=== PATIENT | female | born 1960 | race American Indian/Alaskan Native ===

== ENCOUNTER 2017-03-07 22:13 | Emergency (ER) | payer MEDICARE ==
[2017-03-07 23:47] LABS: Basophils % (Auto) 0.8 % (0.0-1.8); Eosinophils % (Auto) 2.2 % (0.0-4.3); Hematocrit 41.5 % (30.3-42.9); Hemoglobin 13.6 gm/dl (10.1-14.3); Mean Corpuscular HGB Conc 33 % (30-34); Mean Corpuscular Hemoglobin 29 pg (28-32); Mean Corpuscular Volume 87 fl (79-97); Platelet Count 196 K/mm3 (140-440); Red Blood Count 4.76 M/mm3 (3.65-5.03); Red Cell Distribution Width 12.8 % (13.2-15.2); White Blood Count 6.3 K/mm3 (4.5-11.0)
[2017-03-07 23:59] LABS: Alanine Aminotransferase 10 units/L (7-56); Albumin 4.1 g/dL (3.9-5); Albumin/Globulin Ratio 1.5 %; Alkaline Phosphatase 70 units/L (35-129); Anion Gap 17 mmol/L; Blood Urea Nitrogen 6 mg/dL (7-17); Calcium 9.4 mg/dL (8.4-10.2); Carbon Dioxide 24 mmol/L (22-30); Chloride 96.6 mmol/L (98-107); Glucose 86 mg/dL (65-100); Potassium 3.5 mmol/L (3.6-5.0); Sodium 134 mmol/L (137-145); Total Protein 6.8 g/dL (6.3-8.2)
--- NOTE | 2017-03-08 00:34 | Cat Scan Report ---
FINAL REPORT EXAM: CT HEAD/BRAIN W/O CONTRAST. HISTORY: Headaches. TECHNIQUE: Unenhanced axial CT images of the brain were obtained. No prior studies are available for comparison. FINDINGS: The cortical sulci and ventricles are within normal limits for patient's age. Incidental note is made of a small cavum septum pellucidum (developmental variant). There is no extra-axial fluid collection, mass, mass effect, midline shift, hydrocephalus, or acute intracranial hemorrhage. The visualized paranasal sinuses and mastoid air cells are clear. There is no skull fracture or other osseous abnormality. The visualized orbits and globes are grossly unremarkable. IMPRESSION: No acute intracranial abnormality.
[2017-03-08] MEDS ORDERED: TORADOL IM ONE (04:19)
--- NOTE | 2017-03-08 04:24 | Emergency Department Report ---
ED Headache HPI - General Chief Complaint: Headache Stated Complaint: HEADACHE Time Seen by Provider: 03/08/17 04:09 Source: patient Exam Limitations: no limitations - History of Present Illness Initial Comments: 56-year-old female coming today with a chief complaint of headache pain going on for 1-1/2 month. Patient describes her headache as right-sided headache radiated down to her neck constant. Patient scheduled for an open MRI today. Patient denied any focal motor deficits or sensory deficit no visual disturbance or deficit, no bowel or bladder incontinence. Patient denied any history of fever or recent travel. Quality: moderate Head Injury Location: occipital Recent Head Trauma: no recent headache/trauma Associated Symptoms: denies symptoms Allergies/Adverse Reactions: Allergies iodine Allergy (Verified 03/08/17 02:56) Anaphylaxis morphine Allergy (Verified 03/08/17 02:56) Anaphylaxis Penicillins Allergy (Verified 03/08/17 02:56) Anaphylaxis Home Medications: Ambulatory Orders Butalb/Acetaminophen/Caffeine [Fioricet 50-300-40 mg CAP] 1 cap PO Q6HR PRN 08/18 Carvedilol 12.5 mg PO BID 03/03/17 Cyclobenzaprine 10 mg PO BID PRN 03/03/17 Lisinopril 10 mg PO QDAY 03/03/17 Topiramate 100 mg PO QDAY 03/03/17 Meclizine [Antivert] 12.5 mg PO Q8H PRN #30 day 03/05/17 Pantoprazole [Protonix TAB] 40 mg PO QDAY #7 day 03/05/17 HYDROcodone/APAP 5-325 [[place] 5/325] 1 each PO Q6HR PRN #20 tablet 03/08/17 Ondansetron [Zofran Odt] 4 mg PO Q8HR PRN #14 tab.rapdis 03/08/17 ED Review of Systems ROS: Stated complaint: HEADACHE Other details as noted in HPI Comment: All other systems reviewed and negative Constitutional: denies: chills, fever ENT: denies: ear pain, throat pain, dental pain Respiratory: denies: cough, shortness of breath, SOB with exertion Cardiovascular: denies: chest pain, palpitations Gastrointestinal: denies: abdominal pain, nausea, vomiting Genitourinary: denies: urgency, dysuria, frequency, hematuria Musculoskeletal: denies: back pain Skin: denies: rash, lesions Neurological: headache. denies: weakness, numbness, paresthesias, confusion, abnormal gait, vertigo ED Past Medical Hx - Past Medical History Previous Medical History?: Yes Hx Congestive Heart Failure: Yes Hx Asthma: Yes Hx COPD: Yes Additional medical history: hyperthyroidism; cardiac stents x2, 2006 - Surgical History Past Surgical History?: No - Social History Smoking Status: Current Every Day Smoker Substance Use Type: None - Medications Home Medications: Home Medications Medication Instructions Recorded Confirmed Last Taken Type Butalb/Acetaminophen/Caffeine 1 cap PO Q6HR PRN 03/03/17 03/08/17 Unknown History [Fioricet 50-300-40 mg CAP] Carvedilol 12.5 mg PO BID 03/03/17 03/08/17 03/07/17 History Cyclobenzaprine 10 mg PO BID PRN 03/03/17 03/08/17 03/07/17 History Lisinopril 10 mg PO QDAY 03/03/17 03/08/17 03/07/17 History Topiramate 100 mg PO QDAY 03/03/17 03/08/17 03/07/17 History Meclizine [Antivert] 12.5 mg PO Q8H PRN #30 day 03/05/17 03/08/17 Unknown Rx Pantoprazole [Protonix TAB] 40 mg PO QDAY #7 day 03/05/17 03/08/17 Unknown Rx HYDROcodone/APAP 5-325 [[place] 1 each PO Q6HR PRN #20 tablet 03/08/17 Unknown Rx 5/325] Ondansetron [Zofran Odt] 4 mg PO Q8HR PRN #14 tab.rapdis 03/08/17 Unknown Rx ED Physical Exam - General Limitations: No Limitations General appearance: alert, in no apparent distress - Head Head exam: Present: atraumatic, normocephalic, normal inspection - Eye Eye exam: Present: normal appearance, PERRL, EOMI Pupils: Present: normal accommodation - ENT ENT exam: Present: normal exam, normal orophraynx, mucous membranes moist, TM's normal bilaterally, normal external ear exam - Neck Neck exam: Present: normal inspection, full ROM. Absent: tenderness, meningismus, lymphadenopathy, thyromegaly - Respiratory Respiratory exam: Present: normal lung sounds bilaterally. Absent: respiratory distress, wheezes, rales, rhonchi, chest wall tenderness, accessory muscle use, decreased breath sounds, prolonged expiratory - Cardiovascular Cardiovascular Exam: Present: regular rate, normal rhythm, normal heart sounds - GI/Abdominal GI/Abdominal exam: Present: soft. Absent: tenderness, guarding, rebound, mass, bruit, pulsatile mass - Extremities Exam Extremities exam: Present: normal inspection. Absent: tenderness - Back Exam Back exam: Absent: normal inspection, tenderness, CVA tenderness (R), CVA tenderness (L), muscle spasm - Neurological Exam Neurological exam: Present: alert, oriented X3, CN II-XII intact, normal gait, reflexes normal. Absent: abnormal gait, motor sensory deficit - Skin Skin exam: Present: warm, intact, normal color ED Course Vital Signs 03/07/17 03/07/17 03/08/17 22:26 22:57 02:21 Temperature 98.8 F Pulse Rate 67 66 70 Respiratory 18 16 Rate Blood Pressure 147/97 147/97 Blood Pressure [Right] O2 Sat by Pulse 100 100 100 Oximetry 03/08/17 03/08/17 03/08/17 02:30 02:45 02:57 Temperature Pulse Rate 71 66 59 L Respiratory 14 17 18 Rate Blood Pressure 135/83 106/69 Blood Pressure 112/67 [Right] O2 Sat by Pulse 99 100 100 Oximetry 03/08/17 03/08/17 03/08/17 03:05 03:15 03:30 Temperature Pulse Rate 54 L 58 L Respiratory 18 17 Rate Blood Pressure 112/67 116/77 114/77 Blood Pressure [Right] O2 Sat by Pulse 100 99 Oximetry 03/08/17 03/08/17 03/08/17 03:45 04:00 04:15 Temperature Pulse Rate 61 59 L 63 Respiratory 18 17 15 Rate Blood Pressure 116/76 115/77 131/87 Blood Pressure [Right] O2 Sat by Pulse 100 100 Oximetry ED Medical Decision Making - Lab Data Result diagrams: 03/07/17 23:21 03/07/17 23:21 Critical care attestation.: If time is entered above; I have spent that time in minutes in the direct care of this critically ill patient, excluding procedure time. ED Disposition Clinical Impression: Headache Disposition: DC-01 TO HOME OR SELFCARE Is pt being admited?: No Condition: Stable Instructions: Acute Headache (ED) Referrals: PRIMARY CARE, [Primary Care Provider] - 3-5 Days
[2017-03-08 04:44] VITALS: BP 123/78
== END 2017-03-08 05:07 | disposition home or self-care (01) ==
LOC: ED 22:13
DX: R51 Headache (principal); I50.9 Heart failure, unspecified; J45.909 Unspecified asthma, uncomplicated; E05.90 Thyrotoxicosis, unspecified without thyrotoxic crisis or storm; F17.200 Nicotine dependence, unspecified, uncomplicated; Z95.1 Presence of aortocoronary bypass graft; Z88.5 Allergy status to narcotic agent; Z88.0 Allergy status to penicillin; Z91.02 Food additives allergy status
CPT/HCPCS: 36415; 70450; 80053; 85025; 96372; 99284; J1885

== ENCOUNTER 2017-03-09 21:35 | Emergency (ER) | payer MEDICARE ==
[2017-03-09 22:35] LABS: Basophils % (Auto) 0.9 % (0.0-1.8); Eosinophils % (Auto) 2.1 % (0.0-4.3); Hemoglobin 13.9 gm/dl (10.1-14.3); Mean Corpuscular HGB Conc 32 % (30-34); Mean Corpuscular Hemoglobin 29 pg (28-32); Mean Corpuscular Volume 88 fl (79-97); Platelet Count 199 K/mm3 (140-440); Red Blood Count 4.88 M/mm3 (3.65-5.03); Red Cell Distribution Width 12.9 % (13.2-15.2); White Blood Count 6.8 K/mm3 (4.5-11.0)
[2017-03-09 22:43] LABS: Anion Gap 19 mmol/L; Blood Urea Nitrogen 6 mg/dL (7-17); Calcium 9.3 mg/dL (8.4-10.2); Carbon Dioxide 21 mmol/L (22-30); Chloride 100.6 mmol/L (98-107); Glucose 85 mg/dL (65-100); Potassium 3.8 mmol/L (3.6-5.0); Sodium 137 mmol/L (137-145)
[2017-03-10] MEDS ORDERED: TYLENOL PO ONE (02:06)
--- NOTE | 2017-03-10 10:20 | Emergency Department Report ---
ED Headache HPI - General Chief Complaint: Dizziness Stated Complaint: HEADACHE, DIZZINESS Time Seen by Provider: 03/10/17 10:07 Source: patient - History of Present Illness Initial Comments: 57-year-old female here with headache for the last month. Patient states she is having persistent headache feels a burning in the back of her head that is been fairly constant for the last month. She complains of some dizziness. States she feels lightheaded on a regular basis. Says the headache is resolved with some Tylenol but only gives her approximately 30 minutes of relief. She has no visual changes. She does get occasional nausea but no vomiting. She denies fevers and chills. She does get some neck pain on the right side but she feels like she is holding her neck because of the headache. Timing/Duration: other (1 month) Quality: moderate Recent Head Trauma: no recent headache/trauma, chronic headaches Associated Symptoms: nausea/vomiting. denies: confusion, fatigue, facial pain, fever/chills, flushing, loss of consciousness, nasal congestion, nasal drainage , numbness in legs/feet, seizures, sinus infection, stiff neck, vision changes Allergies/Adverse Reactions: Allergies iodine Allergy (Verified 03/08/17 02:56) Anaphylaxis morphine Allergy (Verified 03/08/17 02:56) Anaphylaxis Penicillins Allergy (Verified 03/08/17 02:56) Anaphylaxis Home Medications: Ambulatory Orders Carvedilol 12.5 mg PO BID 03/03/17 Cyclobenzaprine 10 mg PO BID PRN 03/03/17 Lisinopril 10 mg PO QDAY 03/03/17 Topiramate 100 mg PO QDAY 03/03/17 Meclizine [Antivert] 12.5 mg PO Q8H PRN #30 day 03/05/17 Pantoprazole [Protonix TAB] 40 mg PO QDAY #7 day 03/05/17 HYDROcodone/APAP 5-325 [[place] 5/325] 1 each PO Q6HR PRN #20 tablet 03/08/17 Ondansetron [Zofran Odt] 4 mg PO Q8HR PRN #14 tab.rapdis 03/08/17 Butalb/Acetaminophen/Caffeine [Fioricet 50-300-40 mg CAP] 1 cap PO Q6HR PRN #10 capsule 03/10/17 Ibuprofen [Motrin] 600 mg PO Q8H PRN #30 tablet 03/10/17 methylPREDNISolone [Medrol] 4 mg PO QAM #1 tab.ds.pk 03/10/17 ED Review of Systems ROS: Stated complaint: HEADACHE, DIZZINESS Other details as noted in HPI Comment: All other systems reviewed and negative Constitutional: denies: chills, fever Eyes: denies: eye pain, eye discharge, vision change ENT: denies: ear pain, throat pain Respiratory: denies: cough, shortness of breath, wheezing Cardiovascular: denies: chest pain, palpitations Endocrine: no symptoms reported Gastrointestinal: nausea. denies: abdominal pain, diarrhea Genitourinary: denies: urgency, dysuria, discharge Musculoskeletal: denies: back pain, joint swelling, arthralgia Skin: denies: rash, lesions Neurological: headache, other (dizziness). denies: weakness, paresthesias Psychiatric: denies: anxiety, depression Hematological/Lymphatic: denies: easy bleeding, easy bruising ED Past Medical Hx - Past Medical History Previous Medical History?: Yes Hx Hypertension: Yes (CHF) Hx Congestive Heart Failure: Yes Hx Asthma: Yes Hx COPD: Yes Additional medical history: hyperthyroidism; cardiac stents x2, 2006 - Surgical History Past Surgical History?: No - Family History Family history: no significant - Social History Smoking Status: Current Some Day Smoker Substance Use Type: Prescribed - Medications Home Medications: Home Medications Medication Instructions Recorded Confirmed Last Taken Type Carvedilol 12.5 mg PO BID 03/03/17 03/08/17 03/07/17 History Cyclobenzaprine 10 mg PO BID PRN 03/03/17 03/08/17 03/07/17 History Lisinopril 10 mg PO QDAY 03/03/17 03/08/17 03/07/17 History Topiramate 100 mg PO QDAY 03/03/17 03/08/17 03/07/17 History Meclizine [Antivert] 12.5 mg PO Q8H PRN #30 day 03/05/17 03/08/17 Unknown Rx Pantoprazole [Protonix TAB] 40 mg PO QDAY #7 day 03/05/17 03/08/17 Unknown Rx HYDROcodone/APAP 5-325 [[place] 1 each PO Q6HR PRN #20 tablet 03/08/17 Unknown Rx 5/325] Ondansetron [Zofran Odt] 4 mg PO Q8HR PRN #14 tab.rapdis 03/08/17 Unknown Rx Butalb/Acetaminophen/Caffeine 1 cap PO Q6HR PRN #10 capsule 03/10/17 Unknown Rx [Fioricet 50-300-40 mg CAP] Ibuprofen [Motrin] 600 mg PO Q8H PRN #30 tablet 03/10/17 Unknown Rx methylPREDNISolone [Medrol] 4 mg PO QAM #1 tab.ds.pk 03/10/17 Unknown Rx ED Physical Exam - General Limitations: No Limitations General appearance: alert, in no apparent distress - Head Head exam: Present: atraumatic, normocephalic - Eye Eye exam: Present: normal appearance, PERRL, EOMI. Absent: scleral icterus, conjunctival injection Pupils: Present: normal accommodation - ENT ENT exam: Present: mucous membranes moist - Neck Neck exam: Present: normal inspection - Respiratory Respiratory exam: Present: normal lung sounds bilaterally. Absent: respiratory distress, wheezes, rales, rhonchi - Cardiovascular Cardiovascular Exam: Present: regular rate, normal rhythm. Absent: systolic murmur, diastolic murmur, rubs, gallop - GI/Abdominal GI/Abdominal exam: Present: soft, normal bowel sounds. Absent: distended, tenderness, guarding - Extremities Exam Extremities exam: Present: normal inspection - Back Exam Back exam: Present: normal inspection - Neurological Exam Neurological exam: Present: alert, oriented X3 - Expanded Neurological Exam Expanded Patient oriented to: Present: person, place, time Speech: Present: fluid speech Cerebellar function: Finger to Nose: Normal, Heel to Calle: Normal, Romberg: Normal Upper motor neuron: [place] Neglect: Normal, Pronator Drift: Normal, Babinski Sign : Normal, Sensory Extinction: Normal Motor strength exam: RUE: 5, LUE: 5, RLE: 5, LLE: 5 Best Eye Response ([place]): (4) open spontaneously Best Motor Response ([place]): (6) obeys commands Best Verbal Response ([place]): (5) oriented Vicki Total: 15 - Psychiatric Psychiatric exam: Present: normal affect, normal mood - Skin Skin exam: Present: warm, dry, intact, normal color. Absent: rash ED Course Vital Signs 03/09/17 03/10/17 03/10/17 21:55 02:03 06:35 Temperature 98.4 F 98.1 F 98.7 F Pulse Rate 84 67 71 Respiratory 18 18 18 Rate Blood Pressure 92/61 113/79 Blood Pressure 135/66 [Left] O2 Sat by Pulse 97 100 100 Oximetry 03/10/17 07:35 Temperature Pulse Rate Respiratory 16 Rate Blood Pressure Blood Pressure [Left] O2 Sat by Pulse 100 Oximetry ED Medical Decision Making - Lab Data Result diagrams: 03/09/17 22:06 03/09/17 22:06 Laboratory Results - last 24 hr 03/09/17 03/09/17 03/10/17 22:06 22:06 01:06 WBC 6.8 RBC 4.88 Hgb 13.9 Hct 43.0 H MCV 88 MCH 29 MCHC 32 RDW 12.9 L Plt Count 199 Lymph % (Auto) 40.1 H [place] % (Auto) 11.0 H Eos % (Auto) 2.1 Baso % (Auto) 0.9 Lymph # 2.7 [place] # 0.7 Eos # 0.1 Baso # 0.1 Seg Neutrophils % 45.9 Seg Neutrophils # 3.1 Sodium 137 Potassium 3.8 Chloride 100.6 Carbon Dioxide 21 L Anion Gap 19 BUN 6 L Creatinine 0.5 L Estimated GFR > 60 BUN/Creatinine Ratio 12.00 Glucose 85 Calcium 9.3 Troponin T < 0.010 < 0.010 03/10/17 05:07 WBC RBC Hgb Hct MCV MCH MCHC RDW Plt Count Lymph % (Auto) [place] % (Auto) Eos % (Auto) Baso % (Auto) Lymph # [place] # Eos # Baso # Seg Neutrophils % Seg Neutrophils # Sodium Potassium Chloride Carbon Dioxide Anion Gap BUN Creatinine Estimated GFR BUN/Creatinine Ratio Glucose Calcium Troponin T < 0.010 - EKG Data -: EKG Interpreted by Me - EKG Data 03/10/17 10:20 Sinus rate of 72 normal axis normal intervals T-wave inversions in leads V3 and V4 no ST segment changes - Medical Decision Making 57-year-old female here with headache and lightheadedness. Patient has had the symptoms for over a month. At this point it appears this is a chronic headache. She had a negative head CT two days ago. She otherwise appears well. EKG shows T-wave inversions anteriorly but these are old. She is to negative troponins. She's not complaints of chest pain. Her neurological exam is completely normal. At this point I do not feel she has any intracranial pathology. Plan placed the patient on NSAIDs and other meds for headache. Possible migraine. Portions of this chart were dictated with dictation software. There may be dictation errors contained within this note. Critical care attestation.: If time is entered above; I have spent that time in minutes in the direct care of this critically ill patient, excluding procedure time. ED Disposition Clinical Impression: Headache, Dizziness Disposition: DC- TO HOME OR SELFCARE Is pt being admited?: No Condition: Stable Instructions: Acute Headache (ED) Prescriptions: Butalb/Acetaminophen/Caffeine [Fioricet 50-300-40 mg CAP] 1 cap PO Q6HR PRN #10 capsule PRN Reason: Headache Ibuprofen [Motrin] 600 mg PO Q8H PRN #30 tablet PRN Reason: Pain methylPREDNISolone [Medrol] 4 mg PO QAM #1 tab.ds.pk Referrals: PRIMARY CARE, [Primary Care Provider] - 3-5 Days
[2017-03-10 14:09] VITALS: BP 123/89
== END 2017-03-10 14:00 | disposition home or self-care (01) ==
LOC: ED 21:35
DX: R51 Headache (principal); R42 Dizziness and giddiness; F17.200 Nicotine dependence, unspecified, uncomplicated; I50.9 Heart failure, unspecified; I10 Essential (primary) hypertension; J45.909 Unspecified asthma, uncomplicated; Z88.0 Allergy status to penicillin; Z88.8 Allergy status to other drugs, medicaments and biological substances
CPT/HCPCS: 36415; 80048; 84484; 85025; 93005; 93010

== ENCOUNTER 2017-03-11 20:01 | Emergency (ER) | payer MEDICARE ==
[2017-03-11 20:54] LABS: Basophils % (Auto) 0.7 % (0.0-1.8); Eosinophils % (Auto) 1.8 % (0.0-4.3); Hematocrit 41.5 % (30.3-42.9); Hemoglobin 13.8 gm/dl (10.1-14.3); Mean Corpuscular HGB Conc 33 % (30-34); Mean Corpuscular Hemoglobin 29 pg (28-32); Mean Corpuscular Volume 87 fl (79-97); Platelet Count 194 K/mm3 (140-440); Red Blood Count 4.79 M/mm3 (3.65-5.03); Red Cell Distribution Width 12.8 % (13.2-15.2); White Blood Count 7.5 K/mm3 (4.5-11.0)
[2017-03-11 21:07] LABS: Alanine Aminotransferase 13 units/L (7-56); Albumin 4.5 g/dL (3.9-5); Alkaline Phosphatase 73 units/L (35-129); Anion Gap 20 mmol/L; Blood Urea Nitrogen 6 mg/dL (7-17); Calcium 9.4 mg/dL (8.4-10.2); Carbon Dioxide 23 mmol/L (22-30); Chloride 96.1 mmol/L (98-107); Glucose 124 mg/dL (65-100); Potassium 3.8 mmol/L (3.6-5.0); Sodium 135 mmol/L (137-145); Total Protein 6.8 g/dL (6.3-8.2)
--- NOTE | 2017-03-12 02:34 | Emergency Department Report ---
HPI - General Chief Complaint: Extremity Injury, Lower Time Seen by Provider: 03/12/17 02:29 - HPI HPI: Patient came to the ED initially for left leg pain but when I saw her neurologist and her pain in the leg was gone. She talked to me about having some dizziness, for which she was already seen and prescribed meclizine 12.5. She states that it feels like the room is spinning around her when the dizziness hates about once or twice a day. It usually hits after she takes a blood pressure pill all when she hasn't eaten yet. I told her she could increase the meclizine 12.5-25 mg daily the every 8 hours when necessary for dizziness. ED Past Medical Hx - Past Medical History Previous Medical History?: Yes Hx Hypertension: Yes (CHF) Hx Congestive Heart Failure: Yes Hx Asthma: Yes Hx COPD: Yes Additional medical history: hyperthyroidism; cardiac stents x2, 2006 - Surgical History Past Surgical History?: Yes Additional Surgical History: ectopic - Social History Smoking Status: Current Every Day Smoker Substance Use Type: None - Medications Home Medications: Home Medications Medication Instructions Recorded Confirmed Last Taken Type Carvedilol 12.5 mg PO BID 03/03/17 03/11/17 03/07/17 History Lisinopril 10 mg PO QDAY 03/03/17 03/11/17 03/07/17 History Meclizine [Antivert] 12.5 mg PO Q8H PRN #30 day 03/05/17 03/11/17 Unknown Rx Pantoprazole [Protonix TAB] 40 mg PO QDAY #7 day 03/05/17 03/11/17 Unknown Rx Butalb/Acetaminophen/Caffeine 1 cap PO Q6HR PRN #10 capsule 03/10/17 03/11/17 Unknown Rx [Fioricet 50-300-40 mg CAP] Topiramate 100 mg PO QDAY #30 03/10/17 03/11/17 Unknown Rx ED Review of Systems ROS: Stated complaint: LEFT LEG PAIN Other details as noted in HPI Comment: All other systems reviewed and negative Musculoskeletal: denies: back pain, joint swelling, arthralgia Neurological: other (dizziness) Psychiatric: denies: anxiety, depression Physical Exam - Physical Exam Vital Signs: Vital Signs 03/11/17 03/11/17 03/11/17 20:10 23:01 23:02 Temperature 98.6 F 98.6 F Pulse Rate 82 82 Respiratory 18 20 20 Rate Blood Pressure 151/104 Blood Pressure 164/87 [Left] O2 Sat by Pulse 100 99 100 Oximetry Physical Exam: Physical Exam: - General Limitations: No Limitations General appearance: alert, in no apparent distress. - Head Head exam: Present: atraumatic, normocephalic - Eye Eye exam: Present: normal appearance - ENT ENT exam: Present: mucous membranes moist - Neck Neck exam: Present: normal inspection - Respiratory Respiratory exam: Present: normal lung sounds bilaterally. Absent: respiratory distress - Cardiovascular Cardiovascular Exam: Present: normal rhythm, normal rate. Absent: systolic murmur, diastolic murmur, rubs, gallop - GI/Abdominal GI/Abdominal exam: Present: soft, normal bowel sounds - Extremities Exam Extremities exam: Present: normal inspection - Back Exam Back exam: Present: normal inspection - Neurological Exam Neurological exam: Present: alert, oriented X3 - Psychiatric Psychiatric exam: normal affect and mood - Skin Skin exam: Present: warm, dry, intact, normal color. Absent: rash ED Course Vital Signs 03/11/17 03/11/17 03/11/17 20:10 23:01 23:02 Temperature 98.6 F 98.6 F Pulse Rate 82 82 Respiratory 18 20 20 Rate Blood Pressure 151/104 Blood Pressure 164/87 [Left] O2 Sat by Pulse 100 99 100 Oximetry ED Medical Decision Making - Lab Data Result diagrams: 03/11/17 20:28 03/11/17 20:28 Critical care attestation.: If time is entered above; I have spent that time in minutes in the direct care of this critically ill patient, excluding procedure time. ED Disposition Clinical Impression: Dizziness Disposition: DC-01 TO HOME OR SELFCARE Is pt being admited?: No Does the pt Need Aspirin: No Condition: Stable Instructions: Dizziness (ED) Referrals: PRIMARY CARE, [Primary Care Provider] - 3-5 Days KIMBERLY FLORENCE MD [Staff Physician] - 3-5 Days
[2017-03-12 02:47] VITALS: BP 161/80
== END 2017-03-12 03:41 | disposition home or self-care (01) ==
LOC: ED 20:01
DX: R42 Dizziness and giddiness (principal); I50.9 Heart failure, unspecified; I10 Essential (primary) hypertension; J45.909 Unspecified asthma, uncomplicated; J44.9 Chronic obstructive pulmonary disease, unspecified; F17.200 Nicotine dependence, unspecified, uncomplicated; Z88.0 Allergy status to penicillin; Z88.8 Allergy status to other drugs, medicaments and biological substances
CPT/HCPCS: 36415; 80053; 85025; 99283

== ENCOUNTER 2017-03-23 20:51 | Emergency (ER) | payer MEDICARE ==
[2017-03-23 21:58] LABS: Basophils % (Auto) 1.3 % (0.0-1.8); Eosinophils % (Auto) 1.4 % (0.0-4.3); Hematocrit 38.9 % (30.3-42.9); Hemoglobin 12.9 gm/dl (10.1-14.3); Mean Corpuscular HGB Conc 33 % (30-34); Mean Corpuscular Hemoglobin 29 pg (28-32); Mean Corpuscular Volume 86 fl (79-97); Platelet Count 220 K/mm3 (140-440); Red Blood Count 4.53 M/mm3 (3.65-5.03); Red Cell Distribution Width 12.6 % (13.2-15.2); White Blood Count 8.4 K/mm3 (4.5-11.0)
[2017-03-23 22:01] LABS: Blood Urea Nitrogen 5 mg/dL (7-17); Carbon Dioxide 22 mmol/L (22-30)
[2017-03-23 22:02] LABS: Anion Gap 19 mmol/L; Calcium 9.6 mg/dL (8.4-10.2); Glucose 83 mg/dL (65-100); Potassium 3.4 mmol/L (3.6-5.0); Sodium 134 mmol/L (137-145)
[2017-03-24] MEDS ORDERED: TYLENOL PO ONE (09:21)
[2017-03-24] MEDS ORDERED: ATIVAN IM ONE (09:21)
--- NOTE | 2017-03-24 09:24 | XRay Report ---
Chest 2 views: Compared to 03/02/17. History: Chest pain. Findings: Normal cardiomediastinal silhouette. Trachea is midline. No consolidation, pneumothorax or pleural effusion. Impression: No acute cardiopulmonary findings.
--- NOTE | 2017-03-24 10:58 | Emergency Department Report ---
HPI - General Chief Complaint: Chest Pain Time Seen by Provider: 03/24/17 07:52 - HPI HPI: The patient is a 57-year-old female who presents for evaluation of headache, chest pain, and shortness of breath. The patient states that for the past 2 weeks she has experienced on and off episodes of headache, aching in quality, 8/ 10 in severity, generalized, lasting for minutes to a few hours, and followed by transient episodes of palpitations, and mild in severity, tightness in quality discomfort of the chest. She also has experienced moderate in quality shortness of breath at times with these episodes. She states that she believes stress triggers these episodes. The patient denies fever, neck pain or neck stiffness, parasthesias, motor deficit in the arms or legs, cough, hemoptysis, dizziness, syncope, unilateral leg swelling, calf muscle pain. Patient also denies cocaine or other stimulant use, history of DVT or PE, recent immobilization, or history of recent cancer. ED Past Medical Hx - Past Medical History Hx Hypertension: Yes (CHF) Hx Congestive Heart Failure: Yes Hx Asthma: Yes Hx COPD: Yes Additional medical history: hyperthyroidism; cardiac stents x2, 2006 - Surgical History Additional Surgical History: ectopic - Social History Smoking Status: Never Smoker Substance Use Type: None - Medications Home Medications: Home Medications Medication Instructions Recorded Confirmed Last Taken Type Lisinopril 10 mg PO QDAY 03/03/17 03/24/17 03/23/17 History Aspirin BABY CHEW TAB 81 mg PO DAILY 03/24/17 03/24/17 Unknown History Cyclobenzaprine HCl [Flexeril 5 MG 5 mg PO Q8HR PRN #12 tablet 03/24/17 Unknown Rx TAB] ED Review of Systems ROS: Stated complaint: CP Other details as noted in HPI Constitutional: denies: fever ENT: denies: throat or neck pain Respiratory: denies: cough, shortness of breath Cardiovascular: reports chest pain Endocrine: denies unexplained weight loss or gain Gastrointestinal: denies: abdominal pain, nausea Genitourinary: denies: dysuria Musculoskeletal: denies: leg swelling Skin: denies: rash Neurological: denies: headache Hematological/Lymphatic: denies: easy bleeding or easy bruising Psych: denies sadness or hopelessness Physical Exam - Physical Exam Vital Signs: Vital Signs 03/23/17 03/23/17 03/24/17 21:03 21:04 00:44 Temperature 98.9 F 98.9 F 97.6 F Pulse Rate 76 80 70 Respiratory 20 20 18 Rate Blood Pressure 141/83 112/80 Blood Pressure 141/83 [Left] O2 Sat by Pulse 100 100 100 Oximetry 03/24/17 03/24/17 03/24/17 04:59 07:25 07:43 Temperature 98.1 F 98.0 F Pulse Rate 75 Respiratory 16 Rate Blood Pressure 126/83 Blood Pressure [Left] O2 Sat by Pulse 100 100 Oximetry 03/24/17 03/24/17 03/24/17 07:45 08:00 08:15 Temperature Pulse Rate 67 60 58 L Respiratory 16 16 17 Rate Blood Pressure 135/79 135/79 Blood Pressure [Left] O2 Sat by Pulse 100 100 Oximetry 03/24/17 08:30 Temperature Pulse Rate 61 Respiratory 17 Rate Blood Pressure 118/69 Blood Pressure [Left] O2 Sat by Pulse 100 Oximetry Physical Exam: General: well-nourished, well-developed, no acute distress Head: Normocephalic, atraumatic Eyes: normal sclera ENT: Mucous membranes are pink and moist Neck: trachea midline, neck supple, No neck stiffness, no cervical adenopathy Respiratory: Breath sounds equal bilaterally, no wheezing, rales, or rhonchi Cardio: S1 and S2 present, no murmurs, rubs, gallops, capillary refill is brisk Abdomen: Normoactive bowel sounds, soft abdomen, no rigidity, no guarding or rebound tenderness Musc: No pitting edema Skin: No rash Neuro: no facial drooping, normal speech Psych: Normal affect, anxious mood ED Course Vital Signs 03/23/17 03/23/17 03/24/17 21:03 21:04 00:44 Temperature 98.9 F 98.9 F 97.6 F Pulse Rate 76 80 70 Respiratory 20 20 18 Rate Blood Pressure 141/83 112/80 Blood Pressure 141/83 [Left] O2 Sat by Pulse 100 100 100 Oximetry 03/24/17 03/24/17 03/24/17 04:59 07:25 07:43 Temperature 98.1 F 98.0 F Pulse Rate 75 Respiratory 16 Rate Blood Pressure 126/83 Blood Pressure [Left] O2 Sat by Pulse 100 100 Oximetry 03/24/17 03/24/17 03/24/17 07:45 08:00 08:15 Temperature Pulse Rate 67 60 58 L Respiratory 16 16 17 Rate Blood Pressure 135/79 135/79 Blood Pressure [Left] O2 Sat by Pulse 100 100 Oximetry 03/24/17 08:30 Temperature Pulse Rate 61 Respiratory 17 Rate Blood Pressure 118/69 Blood Pressure [Left] O2 Sat by Pulse 100 Oximetry ED Medical Decision Making - Lab Data Result diagrams: 03/23/17 21:22 03/23/17 21:22 - Medical Decision Making The patient was seen and examined by myself. The patient is placed on a shingle packer and continuous pulse ox. On initial evaluation, the patient was found to be in no distress. As there are no neuro deficits or other findings on examination concerning for acute intracranial disease process, and as the patient states that symptoms are consistent with previous headaches, a CAT scan of the head will not be obtained at this time. EKG was negative for findings suggestive of acute cardiac infarct. Labs and imaging are obtained. The patient given Tylenol for her pain. Chest x-ray is negative for pneumothorax, focal consolidation, pulmonary vascular congestion, pleural effusion, or other obvious acute cardiopulmonary disease process. Lab results were non-concerning including levels of troponin, WBC, hemoglobin, hematocrit, electrolytes, renal function. The patient was reevaluated and reported that their symptoms were markedly improved. As the patient has a ODESSA risk score less than 2, and a well 's score less than 2, the patient is at low risk of ACS or pulmonary emboli etiology of their symptoms. The patient is stable for discharge with outpatient follow-up. The patient is given follow-up and return instructions. The patient expressed understanding and agreed with the plan. The patient is discharged in stable condition. Critical care attestation.: If time is entered above; I have spent that time in minutes in the direct care of this critically ill patient, excluding procedure time. ED Disposition Clinical Impression: Acute non intractable tension-type headache, Acute chest pain Disposition: TO HOME OR SELFCARE Is pt being admited?: No Does the pt Need Aspirin: No Condition: Stable Instructions: Chest Pain (ED), Acute Headache (ED), Costochondritis (ED) Prescriptions: Cyclobenzaprine HCl [Flexeril 5 MG TAB] 5 mg PO Q8HR PRN #12 tablet PRN Reason: Pain Referrals: PRIMARY CARE, [Primary Care Provider] - 3-5 Days Time of Disposition: 10:57
[2017-03-24 16:39] VITALS: BP 124/75
== END 2017-03-24 16:30 | disposition home or self-care (01) ==
LOC: ED 20:51
DX: G44.209 Tension-type headache, unspecified, not intractable (principal); R07.9 Chest pain, unspecified; I10 Essential (primary) hypertension; I50.9 Heart failure, unspecified; J45.909 Unspecified asthma, uncomplicated; J44.9 Chronic obstructive pulmonary disease, unspecified
CPT/HCPCS: 36415; 71020; 80048; 83880; 84484; 85025; 93005; 93010; 96372; 99284; J2060

== ENCOUNTER 2017-03-29 17:31 | Emergency (ER) | payer MEDICARE ==
--- NOTE | 2017-03-30 04:13 | Emergency Department Report ---
ED General Adult HPI - General Chief complaint: Dyspnea/Respdistress Stated complaint: JUDY,TIGHTNESS IN THROAT Time Seen by Provider: 03/30/17 04:07 Source: patient Mode of arrival: Ambulatory Limitations: No Limitations - History of Present Illness Initial comments: pt is a 57 y/o aaf with hx of COPD, Asthma, CHF, and HTN pt who present for shortness of breath and cough, x 2 weeks, pt seen ed on 03/23/2017 for complain of CP, SOB,and cough, work up was negative for mi with low suspicion of PE, pt now advises that cp is resolve however sob and scratchy throat are main concerns today. pt denies fever no chills , no substance. Complaint: SOB Onset/Timin -: week(s) Location: head Severity scale (0 -10): 0 Quality: burning, other (itching ) Consistency: intermittent Improves with: none Worsens with: rest Associated Symptoms: denies: confusion, chest pain, cough, diaphoresis, fever/ chills, headaches, loss of appetite, malaise, nausea/vomiting, rash, seizure, syncope, weakness, other Treatments Prior to Arrival: none, other (pt advises out of albuterol inhalier x 2 weeks ) - Related Data Home Medications Medication Instructions Recorded Confirmed Last Taken Lisinopril 10 mg PO QDAY 03/03/17 03/24/17 03/23/17 Aspirin BABY CHEW TAB 81 mg PO DAILY 03/24/17 03/24/17 Unknown Previous Rx's Medication Instructions Recorded Last Taken Type Cyclobenzaprine HCl [Flexeril 5 MG 5 mg PO Q8HR PRN #12 tablet 03/24/17 Unknown Rx TAB] ALBUTEROL Inhaler [ProAir HFA 2 puff IH QID PRN #1 inhalation 03/30/17 Unknown Rx Inhaler] Benzocaine/Menth/Cetylpyrd 8 each MM QID PRN #3 packet 03/30/17 Unknown Rx [Cepacol X Strength] Fluticasone [Flonase] 1 spray NS QDAY #1 bottle 03/30/17 Unknown Rx predniSONE [Deltasone] 40 mg PO QDAY #10 tab 03/30/17 Unknown Rx Allergies Allergy/AdvReac Type Severity Reaction Status Date / Time iodine Allergy Anaphylaxis Verified 03/08/17 02:56 morphine Allergy Anaphylaxis Verified 03/08/17 02:56 Penicillins Allergy Anaphylaxis Verified 03/08/17 02:56 ED Review of Systems ROS: Stated complaint: JUDY,TIGHTNESS IN THROAT Other details as noted in HPI Constitutional: denies: chills, diaphoresis, fever, malaise, weakness Eyes: denies: eye pain, eye discharge, vision change ENT: throat pain, congestion Respiratory: denies: cough, shortness of breath, wheezing Cardiovascular: denies: chest pain, palpitations Endocrine: no symptoms reported Gastrointestinal: denies: abdominal pain, nausea, diarrhea Genitourinary: denies: urgency, dysuria, discharge Musculoskeletal: denies: back pain, joint swelling, arthralgia Skin: denies: rash, lesions Neurological: denies: headache, weakness, paresthesias Psychiatric: denies: anxiety, depression Hematological/Lymphatic: denies: easy bleeding, easy bruising ED Past Medical Hx - Past Medical History Hx Hypertension: Yes (CHF) Hx Congestive Heart Failure: Yes Hx Asthma: Yes Hx COPD: Yes Additional medical history: hyperthyroidism; cardiac stents x2, 2006 - Surgical History Additional Surgical History: ectopic - Social History Smoking Status: Former Smoker Substance Use Type: None - Medications Home Medications: Home Medications Medication Instructions Recorded Confirmed Last Taken Type Lisinopril 10 mg PO QDAY 03/03/17 03/24/17 03/23/17 History Aspirin BABY CHEW TAB 81 mg PO DAILY 03/24/17 03/24/17 Unknown History Cyclobenzaprine HCl [Flexeril 5 MG 5 mg PO Q8HR PRN #12 tablet 03/24/17 Unknown Rx TAB] ALBUTEROL Inhaler [ProAir HFA 2 puff IH QID PRN #1 inhalation 03/30/17 Unknown Rx Inhaler] Benzocaine/Menth/Cetylpyrd 8 each MM QID PRN #3 packet 03/30/17 Unknown Rx [Cepacol X Strength] Fluticasone [Flonase] 1 spray NS QDAY #1 bottle 03/30/17 Unknown Rx predniSONE [Deltasone] 40 mg PO QDAY #10 tab 03/30/17 Unknown Rx ED Physical Exam - General Limitations: No Limitations General appearance: alert, in no apparent distress - Head Head exam: Present: atraumatic, normocephalic - Eye Eye exam: Present: normal appearance, PERRL, EOMI Pupils: Present: normal accommodation - ENT ENT exam: Present: normal exam, TM's normal bilaterally, normal external ear exam - Neck Neck exam: Present: normal inspection, full ROM. Absent: tenderness, lymphadenopathy, thyromegaly - Respiratory Respiratory exam: Present: normal lung sounds bilaterally. Absent: respiratory distress, wheezes, rales, rhonchi, stridor, accessory muscle use, decreased breath sounds, prolonged expiratory - Cardiovascular Cardiovascular Exam: Present: regular rate, normal heart sounds - GI/Abdominal GI/Abdominal exam: Present: soft, normal bowel sounds. Absent: distended, tenderness, guarding, rebound, rigid, organomegaly, mass, bruit, pulsatile mass , hernia - Rectal Rectal exam: Present: deferred - Extremities Exam Extremities exam: Present: normal inspection - Back Exam Back exam: Present: normal inspection, full ROM. Absent: tenderness, CVA tenderness (R), CVA tenderness (L), muscle spasm, paraspinal tenderness - Neurological Exam Neurological exam: Present: alert, oriented X3, normal gait, reflexes normal - Psychiatric Psychiatric exam: Present: normal affect, normal mood - Skin Skin exam: Present: warm, dry, intact, normal color. Absent: rash, cyanosis, erythema, urticaria ED Course Vital Signs 03/29/17 03/29/17 17:54 23:26 Temperature 97.1 F L 98.7 F Pulse Rate 94 H 84 Respiratory 16 Rate Blood Pressure 117/79 Blood Pressure 118/76 [Right] O2 Sat by Pulse 99 100 Oximetry ED Medical Decision Making - EKG Data EKG shows normal: sinus rhythm (SR with PVC, lv), axis Rate: normal - EKG Data When compared to previous EKG there are: no significant change Interpretation: no acute changes, normal EKG, LVH - Medical Decision Making PT is a 57 y/o aaf with hx of asthma and copd seen in ed on 03/23, 03/11, 03/09, 03/07 , and 03/03/2017 for complaint of sob, cp, nad 2 additional times this month for similar complaint, today pt presents for cough clear, and scratchy throat x 2 weeks pt denies sob at this time no fever no chills no n/v no back pain no swelling no calf tenderness Exam: ENT: no tms erythema no pain with movement, nose: patent mild erythema, clear post nasal drip, pharynx: mild erythema no exudate tonsilar mild erythema no edema no exudate no abscess, no stridor , no hives CV: S1 S2 no MRG, Lungs: clear bilat all lobes no GUARDADO, no PND no edema there are no ekg changes noted from previous EKG, there has been no fever no chills, pt appears well nontoxic nad, plan: request refill on albuterol inhaler will rx for same, prednisone, cepacol lozenges, pt given strict instructions to return to emergency depart if symptoms worsen. pt denies cp no dizziness no lightheadedness no headache, no n/v at this time. pt states " All I needed was an albuterol treatment I'm fine now. the may verywell be malingering on her part , pt state safe residence and that she has resources to secure rx. Critical care attestation.: If time is entered above; I have spent that time in minutes in the direct care of this critically ill patient, excluding procedure time. ED Disposition Clinical Impression: Bronchitis URI (upper respiratory infection) Qualifiers: URI type: acute nasopharyngitis (common cold) Qualified Code(s): J00 - Acute nasopharyngitis [common cold] Disposition: TO HOME OR SELFCARE Is pt being admited?: No Does the pt Need Aspirin: No Condition: Good Instructions: Chronic Bronchitis (ED) Prescriptions: ALBUTEROL Inhaler [ProAir HFA Inhaler] 2 puff IH QID PRN #1 inhalation PRN Reason: Shortness Of Breath Benzocaine/Menth/Cetylpyrd [Cepacol X Strength] 8 each MM QID PRN #3 packet PRN Reason: Throat Pain Fluticasone [Flonase] 1 spray NS QDAY #1 bottle predniSONE [Deltasone] 40 mg PO QDAY #10 tab Referrals: PRIMARY CARE, [Primary Care Provider] - 3-5 Days Forms: Work/School Release Form(ED) Time of Disposition: 05:02
[2017-03-30] MEDS ORDERED: DELTASONE PO ONE (04:24)
[2017-03-30] MEDS ORDERED: PROVENTIL IH ONE (04:24)
[2017-03-30 05:13] VITALS: BP 115/79
== END 2017-03-30 05:14 | disposition home or self-care (01) ==
LOC: ED 17:31
DX: J00 Acute nasopharyngitis [common cold] (principal); J44.9 Chronic obstructive pulmonary disease, unspecified; J45.909 Unspecified asthma, uncomplicated; I11.0 Hypertensive heart disease with heart failure; I50.9 Heart failure, unspecified; Z98.890 Other specified postprocedural states; Z87.891 Personal history of nicotine dependence
CPT/HCPCS: 93005; 93010; 94640; 99283; J7512

== ENCOUNTER 2017-04-15 19:44 | Emergency (ER) | payer MEDICARE ==
[2017-04-15 20:59] LABS: Basophils % (Auto) 0.8 % (0.0-1.8); Eosinophils % (Auto) 0.2 % (0.0-4.3); Hematocrit 40.5 % (30.3-42.9); Hemoglobin 12.9 gm/dl (10.1-14.3); Mean Corpuscular HGB Conc 32 % (30-34); Mean Corpuscular Hemoglobin 28 pg (28-32); Mean Corpuscular Volume 88 fl (79-97); Platelet Count 240 K/mm3 (140-440); Red Cell Distribution Width 13.5 % (13.2-15.2); White Blood Count 8.6 K/mm3 (4.5-11.0)
[2017-04-15 21:18] LABS: Anion Gap 17 mmol/L; BUN/Creatinine Ratio 18; Blood Urea Nitrogen 7 mg/dL (7-17); Calcium 9.6 mg/dL (8.4-10.2); Carbon Dioxide 22 mmol/L (22-30); Chloride 105.3 mmol/L (98-107); Glucose 82 mg/dL (65-100); Potassium 4.6 mmol/L (3.6-5.0); Sodium 140 mmol/L (137-145)
--- NOTE | 2017-04-15 21:36 | XRay Report ---
FINAL REPORT PROCEDURE: XR CHEST ROUTINE 2V TECHNIQUE: PA and lateral chest radiographs were obtained. CPT 76650 HISTORY: chestpain COMPARISON: No prior studies are available for comparison. FINDINGS: Heart: Normal. Mediastinum/Vessels: Normal. Lungs/Pleural space: Normal. Bony thorax: No acute osseous abnormality. Other: IMPRESSION: Normal examination.
[2017-04-16] MEDS: PEPCID PO ONE (04:08)
[2017-04-16] MEDS: ATIVAN PO ONE (04:24)
--- NOTE | 2017-04-16 04:50 | Emergency Department Report ---
ED General Adult HPI - General Chief complaint: Chest Pain Stated complaint: CP & SOB Time Seen by Provider: 04/16/17 03:38 Source: patient Mode of arrival: Ambulatory Limitations: No Limitations - History of Present Illness Initial comments: She has a 57-year-old female past medical history of of hypertension and hyperthyroidism who presents with chest pain that has been going on for the last couple of hours. Patient states that the chest pain is located in on the middle of her chest and radiates to the left side of her chest. Says it's an achy type of pain to 5 out 10. She denies anything making it better or worse. She says it's constant. She states that she feels similar to when she sat chest pain in the past. Patient has had numerous visits to the ER for chest pain. She had a cardiac cath done in [place] last month which was negative. Patient denies having any nausea she states she had some slight shortness of breath, just been started but now she has none. Severity scale (0 -10): 7 - Related Data Home Medications Medication Instructions Recorded Confirmed Last Taken Lisinopril 10 mg PO QDAY 03/03/17 03/24/17 03/23/17 Aspirin BABY CHEW TAB 81 mg PO DAILY 03/24/17 03/24/17 Unknown Previous Rx's Medication Instructions Recorded Last Taken Type Cyclobenzaprine HCl [Flexeril 5 MG 5 mg PO Q8HR PRN #12 tablet 03/24/17 Unknown Rx TAB] ALBUTEROL Inhaler [ProAir HFA 2 puff IH QID PRN #1 inhalation 03/30/17 Unknown Rx Inhaler] Benzocaine/Menth/Cetylpyrd 8 each MM QID PRN #3 packet 03/30/17 Unknown Rx [Cepacol X Strength] Fluticasone [Flonase] 1 spray NS QDAY #1 bottle 03/30/17 Unknown Rx predniSONE [Deltasone] 40 mg PO QDAY #10 tab 03/30/17 Unknown Rx Famotidine [Pepcid] 20 mg PO BID #30 tablet 04/16/17 Unknown Rx Allergies Allergy/AdvReac Type Severity Reaction Status Date / Time iodine Allergy Anaphylaxis Verified 03/08/17 02:56 morphine Allergy Anaphylaxis Verified 03/08/17 02:56 Penicillins Allergy Anaphylaxis Verified 03/08/17 02:56 ED Review of Systems ROS: Stated complaint: CP & SOB Other details as noted in HPI Constitutional: denies: chills, fever Eyes: denies: eye pain, eye discharge, vision change ENT: denies: ear pain, throat pain Respiratory: denies: cough, shortness of breath, wheezing Cardiovascular: chest pain. denies: palpitations Endocrine: no symptoms reported Gastrointestinal: denies: abdominal pain, nausea, diarrhea Genitourinary: denies: urgency, dysuria, discharge Musculoskeletal: denies: back pain, joint swelling, arthralgia Skin: denies: rash, lesions Neurological: denies: headache, weakness, paresthesias Psychiatric: denies: anxiety, depression Hematological/Lymphatic: denies: easy bleeding, easy bruising ED Past Medical Hx - Past Medical History Hx Hypertension: Yes (CHF) Hx Congestive Heart Failure: Yes Hx Asthma: Yes Hx COPD: Yes Additional medical history: hyperthyroidism; cardiac stents x2, 2006 - Surgical History Additional Surgical History: ectopic - Social History Smoking Status: Current Some Day Smoker Substance Use Type: None - Medications Home Medications: Home Medications Medication Instructions Recorded Confirmed Last Taken Type Lisinopril 10 mg PO QDAY 03/03/17 03/24/17 03/23/17 History Aspirin BABY CHEW TAB 81 mg PO DAILY 03/24/17 03/24/17 Unknown History Cyclobenzaprine HCl [Flexeril 5 MG 5 mg PO Q8HR PRN #12 tablet 03/24/17 Unknown Rx TAB] ALBUTEROL Inhaler [ProAir HFA 2 puff IH QID PRN #1 inhalation 03/30/17 Unknown Rx Inhaler] Benzocaine/Menth/Cetylpyrd 8 each MM QID PRN #3 packet 03/30/17 Unknown Rx [Cepacol X Strength] Fluticasone [Flonase] 1 spray NS QDAY #1 bottle 03/30/17 Unknown Rx predniSONE [Deltasone] 40 mg PO QDAY #10 tab 03/30/17 Unknown Rx Famotidine [Pepcid] 20 mg PO BID #30 tablet 04/16/17 Unknown Rx ED Physical Exam - General Limitations: No Limitations General appearance: alert, in no apparent distress - Head Head exam: Present: atraumatic, normocephalic - Eye Eye exam: Present: normal appearance - ENT ENT exam: Present: mucous membranes moist - Neck Neck exam: Present: normal inspection - Respiratory Respiratory exam: Present: normal lung sounds bilaterally. Absent: respiratory distress - Cardiovascular Cardiovascular Exam: Present: regular rate, normal rhythm. Absent: systolic murmur, diastolic murmur, rubs, gallop - GI/Abdominal GI/Abdominal exam: Present: soft, normal bowel sounds - Extremities Exam Extremities exam: Present: normal inspection - Back Exam Back exam: Present: normal inspection - Neurological Exam Neurological exam: Present: alert, oriented X3 - Psychiatric Psychiatric exam: Present: normal affect, normal mood - Skin Skin exam: Present: warm, dry, intact, normal color. Absent: rash ED Course Vital Signs 04/15/17 04/15/17 04/16/17 19:56 20:25 02:12 Temperature 98.7 F 98.7 F 98.2 F Pulse Rate 108 H 104 H 77 Respiratory 18 18 18 Rate Blood Pressure 103/68 103/68 120/87 Blood Pressure 103/68 [Left] Blood Pressure [Right] O2 Sat by Pulse 98 98 100 Oximetry 04/16/17 03:10 Temperature 98.7 F Pulse Rate 70 Respiratory 18 Rate Blood Pressure Blood Pressure [Left] Blood Pressure 140/96 [Right] O2 Sat by Pulse 100 Oximetry ED Medical Decision Making - Lab Data Result diagrams: 04/15/17 20:35 04/15/17 20:35 Lab Results 04/15/17 04/15/17 04/15/17 Range/Units 20:35 20:35 20:35 WBC 8.6 (4.5-11.0) K/mm3 RBC 4.60 (3.65-5.03) M/mm3 Hgb 12.9 (10.1-14.3) gm/dl Hct 40.5 (30.3-42.9) % MCV 88 (79-97) fl MCH 28 (28-32) pg MCHC 32 (30-34) % RDW 13.5 (13.2-15.2) % Plt Count 240 (140-440) K/mm3 Lymph % (Auto) 18.9 (13.4-35.0) % [place] % (Auto) 8.1 H (0.0-7.3) % Eos % (Auto) 0.2 (0.0-4.3) % Baso % (Auto) 0.8 (0.0-1.8) % Lymph # 1.6 (1.2-5.4) K/mm3 [place] # 0.7 (0.0-0.8) K/mm3 Eos # 0.0 (0.0-0.4) K/mm3 Baso # 0.1 (0.0-0.1) K/mm3 Seg Neutrophils % 72.0 H (40.0-70.0) % Seg Neutrophils # 6.2 (1.8-7.7) K/mm3 Sodium 140 (137-145) mmol/L Potassium 4.6 (3.6-5.0) mmol/L Chloride 105.3 (98-107) mmol/L Carbon Dioxide 22 (22-30) mmol/L Anion Gap 17 mmol/L BUN 7 (7-17) mg/dL Creatinine 0.4 L (0.7-1.2) mg/dL Estimated GFR > 60 ml/min BUN/Creatinine Ratio 18 % Glucose 82 (65-100) mg/dL Calcium 9.6 (8.4-10.2) mg/dL Troponin T < 0.010 (0.00-0.029) ng/mL NT-Pro-B Natriuret Pep 42.84 (0-900) pg/mL 04/16/17 Range/Units 02:35 WBC (4.5-11.0) K/mm3 RBC (3.65-5.03) M/mm3 Hgb (10.1-14.3) gm/dl Hct (30.3-42.9) % MCV (79-97) fl MCH (28-32) pg MCHC (30-34) % RDW (13.2-15.2) % Plt Count (140-440) K/mm3 Lymph % (Auto) (13.4-35.0) % [place] % (Auto) (0.0-7.3) % Eos % (Auto) (0.0-4.3) % Baso % (Auto) (0.0-1.8) % Lymph # (1.2-5.4) K/mm3 [place] # (0.0-0.8) K/mm3 Eos # (0.0-0.4) K/mm3 Baso # (0.0-0.1) K/mm3 Seg Neutrophils % (40.0-70.0) % Seg Neutrophils # (1.8-7.7) K/mm3 Sodium (137-145) mmol/L Potassium (3.6-5.0) mmol/L Chloride (98-107) mmol/L Carbon Dioxide (22-30) mmol/L Anion Gap mmol/L BUN (7-17) mg/dL Creatinine (0.7-1.2) mg/dL Estimated GFR ml/min BUN/Creatinine Ratio % Glucose (65-100) mg/dL Calcium (8.4-10.2) mg/dL Troponin T < 0.010 (0.00-0.029) ng/mL NT-Pro-B Natriuret Pep (0-900) pg/mL - EKG Data -: EKG Interpreted by Me - EKG Data 04/16/17 04:53 EKG shows sinus rhythm signs of LVH no ST segment elevation or T-wave inversion normal axis - Radiology Data Radiology results: report reviewed, image reviewed His x-ray: Shows no acute cardiopulmonary disease - Medical Decision Making Chief Medical diagnosis: GERD Differential medical diagnosis: Non-STEMI, pneumothorax I will get chest x-ray, CBC, troponin, EKG, CMP, BMP oral pain medication Patient likely has GERD as she has a metallic taste in her mouth when the sister occurs and she has bad burping when this chest pain occurs. She has multiple cardiac workups in the past which have been negative. Patient has low risk of cardiac event given that she had a negative A month ago and hurt ODESSA score is 2. Patient is requesting Xanax for anxiety but states that she is allergic to Ativan. I will refrain from Xanax as it is very habit forming and I will refer patient to get a evaluation by her primary care doctor. Critical care attestation.: If time is entered above; I have spent that time in minutes in the direct care of this critically ill patient, excluding procedure time. ED Disposition Clinical Impression: Anxiety Chest pain Qualifiers: Chest pain type: unspecified Qualified Code(s): R07.9 - Chest pain, unspecified GERD (gastroesophageal reflux disease) Qualifiers: Esophagitis presence: without esophagitis Qualified Code(s): K21.9 - Gastro- esophageal reflux disease without esophagitis Disposition: TO HOME OR SELFCARE Is pt being admited?: No Does the pt Need Aspirin: No Condition: Stable Instructions: Chest Pain (ED) Prescriptions: Famotidine [Pepcid] 20 mg PO BID #30 tablet Referrals: CHERELLE CARUSO MD [Staff Physician] - 3-5 Days
[2017-04-16] MEDS: ATARAX PO ONE (05:30)
[2017-04-16 05:48] VITALS: BP 124/85
== END 2017-04-16 06:00 | disposition home or self-care (01) ==
LOC: ED 19:44
DX: F41.9 Anxiety disorder, unspecified (principal); K21.9 Gastro-esophageal reflux disease without esophagitis; R07.9 Chest pain, unspecified; I10 Essential (primary) hypertension; I50.9 Heart failure, unspecified; J45.909 Unspecified asthma, uncomplicated; J44.9 Chronic obstructive pulmonary disease, unspecified; E03.9 Hypothyroidism, unspecified; Z88.0 Allergy status to penicillin; Z88.8 Allergy status to other drugs, medicaments and biological substances
CPT/HCPCS: 36415; 71020; 80048; 83880; 84484; 85025; 93005; 93010

== ENCOUNTER 2017-05-12 08:35 | Inpatient (IN) | payer MEDICARE ==
[2017-05-12 10:56] LABS: Basophils % (Auto) 0.5 % (0.0-1.8); Eosinophils % (Auto) 0.8 % (0.0-4.3); Hematocrit 36.7 % (30.3-42.9); Mean Corpuscular HGB Conc 33 % (30-34); Mean Corpuscular Hemoglobin 29 pg (28-32); Mean Corpuscular Volume 90 fl (79-97); Platelet Count 220 K/mm3 (140-440); Red Blood Count 4.09 M/mm3 (3.65-5.03); Red Cell Distribution Width 14.2 % (13.2-15.2); White Blood Count 11.3 K/mm3 (4.5-11.0)
[2017-05-12 11:06] LABS: INR 0.89 (0.87-1.13)
[2017-05-12 11:16] LABS: Alanine Aminotransferase 10 units/L (7-56); Albumin 3.7 g/dL (3.9-5); Albumin/Globulin Ratio 1.4 %; Alkaline Phosphatase 81 units/L (35-129); Anion Gap 17 mmol/L; BUN/Creatinine Ratio 8; Blood Urea Nitrogen 3 mg/dL (7-17); Calcium 9.1 mg/dL (8.4-10.2); Carbon Dioxide 25 mmol/L (22-30); Glucose 91 mg/dL (65-100); Potassium 4.5 mmol/L (3.6-5.0); Sodium 141 mmol/L (137-145); Total Protein 6.4 g/dL (6.3-8.2)
--- NOTE | 2017-05-12 13:15 | Emergency Department Report ---
ED General Adult HPI - General Chief complaint: Extremity Injury, Lower Stated complaint: SWELLING FROM PROCEDURE TO LEFT LEG Time Seen by Provider: 05/12/17 13:05 Source: patient, RN notes reviewed, old records reviewed Mode of arrival: Ambulatory Limitations: No Limitations - History of Present Illness Initial comments: This is a 57-year-old female. Patient has a history of heart disease. Patient recently admitted to the hospital for cardiac catheterization. Patient presents to the ER with left groin pain and swelling. It started this morning. It is achy and sharp. It does not radiate anywhere. It is constant. It worsens with palpation and range of motion, and it decreases with rest. Past medical history includes heart disease with stent. Patient has no other complaints. Of note, patient recently had a negative arterial duplex at this facility within the past 3 days. -: Gradual, hour(s) Location: left, lower extremity Radiation: non-radiation Severity scale (0 -10): 10 Quality: aching Consistency: constant Improves with: rest Worsens with: movement Associated Symptoms: denies other symptoms - Related Data Previous Rx's Medication Instructions Recorded Last Taken Type ALBUTEROL Inhaler [ProAir HFA 2 puff IH QID PRN #1 inhalation 03/30/17 05/12/17 Rx Inhaler] Fluticasone [Flonase] 1 spray NS QDAY #1 bottle 03/30/17 05/12/17 Rx Aspirin EC [Aspirin Enteric Coated 81 mg PO QDAY #30 tablet. 04/20/17 Rx TAB] Clopidogrel [Plavix] 75 mg PO QDAY #30 tablet 05/11/17 05/12/17 Rx Famotidine [Pepcid] 20 mg PO BID #60 tablet 05/11/17 05/12/17 Rx Lisinopril [Zestril] 10 mg PO DAILY #30 tablet 05/11/17 05/12/17 Rx Allergies Allergy/AdvReac Type Severity Reaction Status Date / Time iodine Allergy Anaphylaxis Verified 03/08/17 02:56 morphine Allergy Anaphylaxis Verified 03/08/17 02:56 Penicillins Allergy Anaphylaxis Verified 03/08/17 02:56 ED Review of Systems ROS: Stated complaint: SWELLING FROM PROCEDURE TO LEFT LEG Other details as noted in HPI Constitutional: denies: fever Eyes: denies: eye discharge ENT: denies: epistaxis Respiratory: denies: shortness of breath Cardiovascular: denies: chest pain Gastrointestinal: denies: abdominal pain Skin: denies: lesions Neurological: denies: weakness Psychiatric: anxiety Hematological/Lymphatic: denies: easy bleeding, easy bruising ED Past Medical Hx - Past Medical History Hx Hypertension: Yes Hx Congestive Heart Failure: Yes Hx Diabetes: No Hx Asthma: Yes Hx COPD: Yes Hx HIV: No Additional medical history: hyperthyroidism; cardiac stents x2, 2006. Cardiac catheterization in April 2017 with stent placement and treatment of stent restenosis - Surgical History Hx Coronary Stent: Yes (Stents X 2 in 2006) Additional Surgical History: ectopic - Social History Smoking Status: Former Smoker Substance Use Type: None - Medications Home Medications: Home Medications Medication Instructions Recorded Confirmed Last Taken Type ALBUTEROL Inhaler [ProAir HFA 2 puff IH QID PRN #1 inhalation 03/30/17 05/12/17 05/12/17 Rx Inhaler] Fluticasone [Flonase] 1 spray NS QDAY #1 bottle 03/30/17 05/12/17 05/12/17 Rx Aspirin EC [Aspirin Enteric Coated 81 mg PO QDAY #30 tablet. 04/20/1705/12/17 Rx TAB] Clopidogrel [Plavix] 75 mg PO QDAY #30 tablet 05/11/17 05/12/17 05/12/17 Rx Famotidine [Pepcid] 20 mg PO BID #60 tablet 05/11/17 05/12/17 05/12/17 Rx Lisinopril [Zestril] 10 mg PO DAILY #30 tablet 05/11/17 05/12/17 05/12/17 Rx ED Physical Exam - General Limitations: No Limitations General appearance: alert, anxious - Head Head exam: Present: atraumatic, normocephalic - Eye Eye exam: Present: normal appearance, EOMI - ENT ENT exam: Present: normal orophraynx, mucous membranes moist, normal external ear exam - Neck Neck exam: Present: normal inspection, full ROM - Respiratory Respiratory exam: Present: normal lung sounds bilaterally. Absent: respiratory distress, chest wall tenderness - Cardiovascular Cardiovascular Exam: Present: regular rate, normal rhythm, normal heart sounds. Absent: systolic murmur, diastolic murmur, rubs, gallop - GI/Abdominal GI/Abdominal exam: Present: soft, normal bowel sounds. Absent: distended, tenderness, guarding, rebound, rigid - Extremities Exam Extremities exam: Present: full ROM, tenderness, normal capillary refill, other (2+ pulses noted in the bilateral upper and lower extremities. In the left inguinal region, there is a hematoma that is tender.). Absent: pedal edema, joint swelling, calf tenderness - Back Exam Back exam: Present: normal inspection, full ROM. Absent: paraspinal tenderness , vertebral tenderness - Neurological Exam Neurological exam: Present: alert, oriented X3, normal gait, other (Extraocular movements intact. Tongue midline. No facial droop. Facial sensation intact to light touch in the V1, V2, V3 distribution bilaterally. 5 and 5 strength in 4 extremities.. Sensation is intact to light touch in 4 extremities.). Absent : motor sensory deficit - Psychiatric Psychiatric exam: Present: anxious - Skin Skin exam: Present: warm, dry, intact, normal color. Absent: rash ED Course Vital Signs 05/12/17 05/12/17 05/12/17 08:40 10:33 13:22 Temperature 98 F 98 F Pulse Rate 109 H 103 H Respiratory 18 22 Rate Blood Pressure 133/90 Blood Pressure 133/93 [Left] O2 Sat by Pulse 100 100 100 Oximetry 05/12/17 05/12/17 05/12/17 13:27 13:31 13:38 Temperature 98.6 F Pulse Rate 90 75 Respiratory 16 21 16 Rate Blood Pressure 113/79 Blood Pressure 113/69 [Left] O2 Sat by Pulse 100 99 100 Oximetry 05/12/17 05/12/17 05/12/17 14:29 14:30 14:31 Temperature 98.7 F Pulse Rate 70 Respiratory 14 Rate Blood Pressure 113/79 122/77 Blood Pressure [Left] O2 Sat by Pulse 98 Oximetry ED Medical Decision Making - Lab Data Result diagrams: 05/12/17 10:44 05/12/17 10:44 Vital Signs 05/12/17 05/12/17 05/12/17 08:40 10:33 13:22 Temperature 98 F 98 F Pulse Rate 109 H 103 H Respiratory 18 22 Rate Blood Pressure 133/90 Blood Pressure 133/93 [Left] O2 Sat by Pulse 100 100 100 Oximetry 05/12/17 05/12/17 05/12/17 13:27 13:31 13:38 Temperature 98.6 F Pulse Rate 90 75 Respiratory 16 21 16 Rate Blood Pressure 113/79 Blood Pressure 113/69 [Left] O2 Sat by Pulse 100 99 100 Oximetry 05/12/17 05/12/17 05/12/17 14:29 14:30 14:31 Temperature 98.7 F Pulse Rate 70 Respiratory 14 Rate Blood Pressure 113/79 122/77 Blood Pressure [Left] O2 Sat by Pulse 98 Oximetry Lab Results 05/12/17 05/12/17 05/12/17 Range/Units 10:44 10:44 10:44 WBC 11.3 H (4.5-11.0) K/mm3 RBC 4.09 (3.65-5.03) M/mm3 Hgb 12.0 (10.1-14.3) gm/dl Hct 36.7 (30.3-42.9) % MCV 90 (79-97) fl MCH 29 (28-32) pg MCHC 33 (30-34) % RDW 14.2 (13.2-15.2) % Plt Count 220 (140-440) K/mm3 Lymph % (Auto) 21.2 (13.4-35.0) % [place] % (Auto) 7.4 H (0.0-7.3) % Eos % (Auto) 0.8 (0.0-4.3) % Baso % (Auto) 0.5 (0.0-1.8) % Lymph # 2.4 (1.2-5.4) K/mm3 [place] # 0.8 (0.0-0.8) K/mm3 Eos # 0.1 (0.0-0.4) K/mm3 Baso # 0.1 (0.0-0.1) K/mm3 Seg Neutrophils % 70.1 H (40.0-70.0) % Seg Neutrophils # 7.9 H (1.8-7.7) K/mm3 PT 12.5 (12.2-14.9) Sec. INR 0.89 (0.87-1.13) Sodium 141 (137-145) mmol/L Potassium 4.5 (3.6-5.0) mmol/L Chloride 104.0 (98-107) mmol/L Carbon Dioxide 25 (22-30) mmol/L Anion Gap 17 mmol/L BUN 3 L (7-17) mg/dL Creatinine 0.4 L (0.7-1.2) mg/dL Estimated GFR > 60 ml/min BUN/Creatinine Ratio 8 % Glucose 91 (65-100) mg/dL Calcium 9.1 (8.4-10.2) mg/dL Total Bilirubin 0.20 (0.1-1.2) mg/dL AST 15 (5-40) units/L ALT 10 (7-56) units/L Alkaline Phosphatase 81 (35-129) units/L Total Protein 6.4 (6.3-8.2) g/dL Albumin 3.7 L (3.9-5) g/dL Albumin/Globulin Ratio 1.4 % - Radiology Data Radiology results: report reviewed, image reviewed LIVE [facility] JENNIFER MARTINEZ Female : 1960 [facility]# [id number] 05/12/17 14:16 - Radiology Dept. Note by FELIX CARPENTER [facility] Num: [id number] : 1960 Patient Age: 57 VASCULAR LAB PRELIMINARY REPORT LLE ARTERIAL DOPPLER COMPLETED FINDINGS CONSISTENT WITH PSEUDOANEURYSM IN LT GROIN DR. HUTTON INFORMED Initialized on 05/12/17 14:16 - END OF NOTE - Medical Decision Making Differential diagnosis, including but not limited to: Pseudoaneurysm, hematoma Assessment and plan: 57-year-old female with new onset left inguinal pseudoaneurysm, as per verbal report from manufacturing engineering technologist, 2.7 x 1.3 cm. Contacted covering swimming pool service technician, Dr. Jeovanny Márquez, who recommended vascular surgery consultation. Case was presented to Dr. Soto, vascular surgery on-call, recommended admission, nothing by mouth after midnight, he indicates patient is okay to continue Plavix, indicates he will see the patient tomorrow morning, case is presented to the Hospital physician, Dr. Hill, who accepts the patient to the medical service for pseudoaneurysm. Patient and family were informed. Critical care attestation.: If time is entered above; I have spent that time in minutes in the direct care of this critically ill patient, excluding procedure time. ED Disposition Clinical Impression: Pseudoaneurysm following procedure, Status post cardiac catheterization Disposition: OP ADMIT IP TO THIS HOSP Is pt being admited?: Yes Does the pt Need Aspirin: No Condition: Good
[2017-05-12] MEDS ORDERED: TYLENOL ONE (13:22)
[2017-05-12] MEDS ORDERED: TYLENOL PO ONE (13:41)
--- NOTE | 2017-05-12 14:40 | History and Physical Report ---
History of Present Illness Chief complaint: My groin is swollen and it hurts where I was stuck. History of present illness: 57 YO Female with HTN, CHF, COPD, Hyperthyroidism, CAD S/P Stent Placement, Asthma present to ED for evaluation. Pt states that she has experience pain in her left groin pain and swelling. Pain is 6/10, localized to the left groin and is associated with swelling. Pain is worse with palpation and movement, sharp, nonradiating, constant. Pt seen and evaluated in ED and found to have LLE doppler which revealed a pseudoaneurysm. Pt denies fever, chills, CP, Palpitations, difficulty breathing, BRBPR, leg pain, calf swelling, prolonged travel/immobility, leg weakness, foot drop. Past History Past Medical History: arthritis, COPD, heart failure, hyperthyroidism, hypertension, other (Asthma) Past Surgical History: Other (Stent placement. ) Social history: single. denies: smoking, alcohol abuse, prescription drug abuse Family history: CAD, hypertension Medications and Allergies Allergies Allergy/AdvReac Type Severity Reaction Status Date / Time iodine Allergy Anaphylaxis Verified 03/08/17 02:56 morphine Allergy Anaphylaxis Verified 03/08/17 02:56 Penicillins Allergy Anaphylaxis Verified 03/08/17 02:56 Home Medications Medication Instructions Recorded Confirmed Last Taken Type ALBUTEROL Inhaler [ProAir HFA 2 puff IH QID PRN #1 inhalation 03/30/17 05/12/17 05/12/17 Rx Inhaler] Fluticasone [Flonase] 1 spray NS QDAY #1 bottle 03/30/17 05/12/17 05/12/17 Rx Aspirin EC [Aspirin Enteric Coated 81 mg PO QDAY #30 tablet.dr 04/20/1705/12/17 Rx TAB] Clopidogrel [Plavix] 75 mg PO QDAY #30 tablet 05/11/17 05/12/17 05/12/17 Rx Famotidine [Pepcid] 20 mg PO BID #60 tablet 05/11/17 05/12/17 05/12/17 Rx Lisinopril [Zestril] 10 mg PO DAILY #30 tablet 05/11/17 05/12/17 05/12/17 Rx Review of Systems Constitutional: no weight loss, no weight gain, no fever, no chills Ears, nose, mouth and throat: no ear pain, no ear discharge, no tinnitis, no decreased hearing, no nose pain, no nasal congestion, no nasal discharge Breasts: no change in shape, no swelling, no mass Cardiovascular: no chest pain, no orthopnea, no palpitations, no rapid/ irregular heart beat, no edema, no syncope, no lightheadedness Respiratory: no cough, no cough with sputum, no excessive sputum, no hemoptysis , no shortness of breath, no dyspnea on exertion Gastrointestinal: no abdominal pain, no nausea, no vomiting, no diarrhea, no constipation, no change in bowel habits, no hematemesis Genitourinary Female: no dysmenorrhea, no pelvic pain, no flank pain, no menorrhagia Rectal: no pain, no incontinence, no bleeding Musculoskeletal: no neck stiffness, no neck pain, no shooting arm pain, no arm numbness/tingling, no low back pain, no shooting leg pain, no leg numbness/ tingling, no redness of joints Integumentary: no rash, no pruritis, no redness, no sores, no wounds Neurological: no head injury, no transient paralysis, no paralysis, no weakness , no parathesias, no numbness, no tingling, no seizures Psychiatric: anxiety, no memory loss, no change in sleep habits, no sleep disturbances, no insomnia, no hypersomnia, no change in appetite, no change in libido, no suicidal ideation Endocrine: no cold intolerance, no heat intolerance, no polyphagia, no excessive thirst, no polydipsia, no polyuria, no nocturia Hematologic/Lymphatic: no easy bruising, no easy bleeding Allergic/Immunologic: no urticaria, no allergic rhinitis, no wheezing Exam - Constitutional Vitals: Temp Pulse Resp BP Pulse Ox 98.6 F 90 16 113/69 100 05/12/17 13:27 05/12/17 13:27 05/12/17 13:38 05/12/17 13:27 05/12/17 13:38 General appearance: Present: no acute distress, well-nourished - EENT Eyes: Present: PERRL ENT: hearing intact, clear oral mucosa - Neck Neck: Present: supple, normal ROM - Respiratory Respiratory effort: normal Respiratory: bilateral: CTA - Cardiovascular Heart Sounds: Present: S1 & S2. Absent: rub, click - Extremities Extremities: pulses symmetrical, No edema, abnormal (Left groid swelling, ) Peripheral Pulses: within normal limits - Abdominal General gastrointestinal: Present: soft, non-tender, non-distended, normal bowel sounds Female genitourinary: Present: normal - Integumentary Integumentary: Present: clear, warm, dry - Musculoskeletal Musculoskeletal: gait normal, strength equal bilaterally - Psychiatric Psychiatric: appropriate mood/affect, intact judgment & insight - Neurologic Neurologic: CNII-XII intact, moves all extremities Results - Labs CBC & Chem 7: 05/12/17 10:44 05/12/17 10:44 Labs: Abnormal lab results 05/12/17 05/12/17 Range/Units 10:44 10:44 WBC 11.3 H (4.5-11.0) K/mm3 [place] % (Auto) 7.4 H (0.0-7.3) % Seg Neutrophils % 70.1 H (40.0-70.0) % Seg Neutrophils # 7.9 H (1.8-7.7) K/mm3 BUN 3 L (7-17) mg/dL Creatinine 0.4 L (0.7-1.2) mg/dL Albumin 3.7 L (3.9-5) g/dL Assessment and Plan - Patient Problems (1) Pseudoaneurysm Current Visit: Yes Status: Acute Plan to address problem: Left Groin Pseudoaneurysm: Vascular surgery team consulted, continue current theapy, (2) COPD (chronic obstructive pulmonary disease) Current Visit: No Status: Chronic Qualifiers: COPD type: C Chronic bronchitis type: C Emphysema type: E Plan to address problem: supplemental oxygen, nebs, supportive care, continue medical management (3) Chronic systolic (congestive) heart failure Current Visit: No Status: Chronic Plan to address problem: Fluid restriction, afterload reduction, diuresis, monitor uop q shift, low sodium diet, continue medical management (4) Hypertension Current Visit: No Status: Chronic Qualifiers: Hypertension type: H Plan to address problem: monitor BP q shift, (5) DVT prophylaxis Current Visit: Yes Status: Acute Plan to address problem: SCD to BLE while in bed
[2017-05-12] MEDS ORDERED: DULCOLAX PR PRN (14:44)
[2017-05-12] MEDS ORDERED: MILK OF MAGNESIA PO PRN (14:44)
[2017-05-12] MEDS ORDERED: ZOFRAN IV PRN (14:44)
[2017-05-12] MEDS ORDERED: PROVENTIL IH PRN (14:44)
--- NOTE | 2017-05-12 15:56 | Event Note ---
Date: 05/12/17 57 year old female s/p cardiac cath who presents with left groin pain with doppler findings of left 2.6 cm pseudoaneurysm arising from the left common femoral artery. Due to symptoms of pain, recommend observing patient overnight. Will obtain repeat doppler in the AM. Keep compression bandage on left groin. Will discuss possible treatment with patient tomorrow based on repeat doppler study after overnight compression bandage.
[2017-05-12] MEDS: TYLENOL PO PRN (20:17)
[2017-05-13] MEDS: TYLENOL PO PRN ×4 (01:47→22:31)
[2017-05-13] MEDS ORDERED: PROAIR IH PRN (09:08)
--- NOTE | 2017-05-13 09:09 | Progress Note ---
Assessment and Plan Assessment and plan: --Left common femoral pseudoaneurysm: Recent heart catheterization,Seen by Vascular,possible endovascular intervention --Coronary artery disease status post PCI and stenting; continue current cardiac medications, cardiology following --History of COPD; oxygen nebulizers and supportive care --Chronic systolic congestive heart failure; resume patient's home medications --Hypertension moderate control, continue current antihypertensives and PRN medications --History of hypothyroidism; continue Synthroid --DVT prophylaxis; SCDs Plan of care discussed with the patient, consult and recommendations noted and appreciated History Interval history: Patient seen and examined Medical records reviewed Patient complains of some pain in the groin Denies chest pain or shortness of breath Hospitalist Physical - Constitutional Vitals: Temp Pulse Resp BP Pulse Ox 98.5 F 78 18 133/87 99 05/13/17 08:03 05/13/17 08:03 05/13/17 08:03 05/13/17 08:03 05/13/17 08:26 General appearance: Present: no acute distress, well-nourished - EENT Eyes: Present: PERRL, EOM intact - Neck Neck: Present: supple, normal ROM - Respiratory Respiratory effort: normal Respiratory: negative: rales, rhonchi, wheezing - Cardiovascular Rhythm: regular Heart Sounds: Present: S1 & S2 - Extremities Extremities: no ischemia, No edema, abnormal ( swelling left groin/ pseudoaneurysm) - Abdominal General gastrointestinal: soft, non-tender, non-distended, normal bowel sounds - Integumentary Integumentary: Present: clear, warm - Psychiatric Psychiatric: appropriate mood/affect, cooperative - Neurologic Neurologic: CNII-XII intact, moves all extremities Results - Labs CBC & Chem 7: 05/12/17 10:44 05/12/17 10:44 Labs: Laboratory Last Values WBC 11.3 K/mm3 (4.5-11.0) H 05/12/17 10:44 RBC 4.09 M/mm3 (3.65-5.03) 05/12/17 10:44 Hgb 12.0 gm/dl (10.1-14.3) 05/12/17 10:44 Hct 36.7 % (30.3-42.9) 05/12/17 10:44 MCV 90 fl (79-97) 05/12/17 10:44 MCH 29 pg (28-32) 05/12/17 10:44 MCHC 33 % (30-34) 05/12/17 10:44 RDW 14.2 % (13.2-15.2) 05/12/17 10:44 Plt Count 220 K/mm3 (140-440) 05/12/17 10:44 Lymph % (Auto) 21.2 % (13.4-35.0) 05/12/17 10:44 [place] % (Auto) 7.4 % (0.0-7.3) H 05/12/17 10:44 Eos % (Auto) 0.8 % (0.0-4.3) 05/12/17 10:44 Baso % (Auto) 0.5 % (0.0-1.8) 05/12/17 10:44 Lymph # 2.4 K/mm3 (1.2-5.4) 05/12/17 10:44 [place] # 0.8 K/mm3 (0.0-0.8) 05/12/17 10:44 Eos # 0.1 K/mm3 (0.0-0.4) 05/12/17 10:44 Baso # 0.1 K/mm3 (0.0-0.1) 05/12/17 10:44 Seg Neutrophils % 70.1 % (40.0-70.0) H 05/12/17 10:44 Seg Neutrophils # 7.9 K/mm3 (1.8-7.7) H 05/12/17 10:44 PT 12.5 Sec. (12.2-14.9) 05/12/17 10:44 INR 0.89 (0.87-1.13) 05/12/17 10:44 Sodium 141 mmol/L (137-145) 05/12/17 10:44 Potassium 4.5 mmol/L (3.6-5.0) 05/12/17 10:44 Chloride 104.0 mmol/L (98-107) 05/12/17 10:44 Carbon Dioxide 25 mmol/L (22-30) 05/12/17 10:44 Anion Gap 17 mmol/L 05/12/17 10:44 BUN 3 mg/dL (7-17) L 05/12/17 10:44 Creatinine 0.4 mg/dL (0.7-1.2) L 05/12/17 10:44 Estimated GFR > 60 ml/min 05/12/17 10:44 BUN/Creatinine Ratio 8 % 05/12/17 10:44 Glucose 91 mg/dL (65-100) 05/12/17 10:44 Calcium 9.1 mg/dL (8.4-10.2) 05/12/17 10:44 Total Bilirubin 0.20 mg/dL (0.1-1.2) 05/12/17 10:44 AST 15 units/L (5-40) 05/12/17 10:44 ALT 10 units/L (7-56) 05/12/17 10:44 Alkaline Phosphatase 81 units/L (35-129) 05/12/17 10:44 Total Protein 6.4 g/dL (6.3-8.2) 05/12/17 10:44 Albumin 3.7 g/dL (3.9-5) L 05/12/17 10:44 Albumin/Globulin Ratio 1.4 % 05/12/17 10:44
[2017-05-13] MEDS ORDERED: PROVENTIL IH PRN (09:25)
--- NOTE | 2017-05-13 10:05 | Consultation ---
History of Present Illness Consult date: 05/13/17 Consult reason: hypertension History of present illness: 57 year old female presenting with left groin pain with right groin swelling. The lower extremity Doppler reveals a pseudoaneurysm. Patient admitted for for endovascular intervention. Patient had a history of coronary artery disease and is post cardiac catheterization and stenting to the left femoral artery. Past History Past Medical History: arthritis, CAD, COPD, heart failure, hyperthyroidism, hypertension, other (Asthma) Past Surgical History: Other (Stent placement. ) Social history: single. denies: smoking, alcohol abuse, prescription drug abuse Family history: CAD, hypertension Medications and Allergies Allergies Allergy/AdvReac Type Severity Reaction Status Date / Time iodine Allergy Anaphylaxis Verified 03/08/17 02:56 morphine Allergy Anaphylaxis Verified 03/08/17 02:56 Penicillins Allergy Anaphylaxis Verified 03/08/17 02:56 Home Medications Medication Instructions Recorded Confirmed Last Taken Type ALBUTEROL Inhaler [ProAir HFA 2 puff IH QID PRN #1 inhalation 03/30/17 05/12/17 05/12/17 Rx Inhaler] Fluticasone [Flonase] 1 spray NS QDAY #1 bottle 03/30/17 05/12/17 05/12/17 Rx Aspirin EC [Aspirin Enteric Coated 81 mg PO QDAY #30 tablet. 04/20/1705/12/17 Rx TAB] Clopidogrel [Plavix] 75 mg PO QDAY #30 tablet 05/11/17 05/12/17 05/12/17 Rx Famotidine [Pepcid] 20 mg PO BID #60 tablet 05/11/17 05/12/17 05/12/17 Rx Lisinopril [Zestril] 10 mg PO DAILY #30 tablet 05/11/17 05/12/17 05/12/17 Rx Active Meds: Active Medications Acetaminophen (Tylenol) 650 mg PO Q4H PRN PRN Reason: Pain MILD(1-3)/Fever >100.5/ESPARZA Last Admin: 05/13/17 01:47 Dose: 650 mg Albuterol (Proventil) 2.5 mg IH Q4HRT PRN PRN Reason: Shortness Of Breath Aspirin (Halfprin Ec) 81 mg PO QDAY [facility] Bisacodyl (Dulcolax) 10 mg DC QDAY PRN PRN Reason: Const[place]relie[place] [facility] Clopidogrel Bisulfate (Plavix) 75 mg PO QDAY [facility] Famotidine (Pepcid) 20 mg PO BID [facility] Fluticasone Propionate (Flonase) 50 mcg NS QDAY [facility] Lisinopril (Zestril) 10 mg PO DAILY [facility] Magnesium Hydroxide (Milk Of Magnesia) 30 ml PO Q4H PRN PRN Reason: Constipation Ondansetron HCl (Zofran) 4 mg IV Q8H PRN PRN Reason: N/V unrelieved by Reglan Review of Systems Constitutional: no weight loss, no weight gain, no chills, no weakness Cardiovascular: no chest pain, no orthopnea, no palpitations, no dyspnea on exertion Respiratory: no cough, no cough with sputum, no hemoptysis, no congestion Gastrointestinal: no abdominal pain, no nausea, no vomiting, no melena, no hematochezia Musculoskeletal: muscle weakness, other (right groin pain and swelling) Integumentary: no rash, no pruritis Endocrine: no cold intolerance, no heat intolerance, no excessive thirst, no polydipsia, no polyuria, no nocturia Hematologic/Lymphatic: no easy bruising, no easy bleeding Allergic/Immunologic: no urticaria, no allergic rhinitis Physical Examination Vital Signs Temp Pulse Resp BP Pulse Ox 98 F 109 H 18 133/90 100 05/12/17 08:40 05/12/17 08:40 05/12/17 08:40 05/12/17 08:40 05/12/17 08:40 General appearance: no acute distress, well-nourished HEENT: Positive: PERRL, Mucus Membranes Moist Neck: Positive: neck supple, trachea midline Cardiac: Positive: Reg Rate and Rhythm, S1/S2. Negative: Audible Murmur Lungs: Positive: clear to auscultation, Normal Breath Sounds Neuro: Positive: Grossly Intact Abdomen: Positive: Soft, Active Bowel Sounds. Negative: Tender, Distended Female genitourinary: deferred Skin: Positive: Clear Incision: Cardiac Cath Site Musculoskeletal: No Pain, Normal Range of Motion Extremities: Present: normal, Other (right adrian swelling and tenderness). Absent: edema Results 05/12/17 10:44 05/12/17 10:44 EKG interpretations - Telemetry EKG Rhythm: Sinus Rhythm Assessment and Plan 1. Left common Femoral artery pseudoaneurysm 2. [place] 2 vessel coronary artery disease status post PCI and stenting in 2 stages first to the right coronary artery and second to the obtuse marginal branch. 3. Hypothyroidism 4. Chronic obstructive pulmonary disease 5. Essential hypertension 6. Polyarthritis Plan. Cardiac-stringer stable. Vascular surgeon consult obtained for endovascular intervention for pseudoaneurysm repair.
[2017-05-13] MEDS: HALFPRIN EC PO SCH (12:28)
[2017-05-13] MEDS: PEPCID PO SCH ×2 (12:28→22:28)
[2017-05-13] MEDS: FLONASE NS SCH (12:29)
[2017-05-13] MEDS: PLAVIX PO SCH (12:29)
[2017-05-13] MEDS: ZESTRIL PO SCH (12:30)
--- NOTE | 2017-05-13 13:20 | Consultation ---
History of Present Illness - Reason for Consult Consult date: 05/13/17 left groin pseudoaneurysm - History of Present Illness 57 year old female with HTN, CHF, COPD, Hyperthyroidism, with coronary artery disease. The patient reports that she had a recent right groin intervention to treat her coronary artery disease with stenting and recently had a left groin intervention to treat her coronary artery disease with a stage stenting procedure. She had pain after her left groin approach cardiac intervention, complicated by severe discomfort preventing her from being able to ambulate properly. She had a arterial duplex performed yesterday and today demonstrating slight enlargement of the left common femoral artery pseudoaneurysm which is now about 3 cm in size. She is very symptomatic and complains of a significant amount of pain with touching or movement. Past History Past Medical History: arthritis, CAD, COPD, heart failure, hyperthyroidism, hypertension, other (Asthma) Past Surgical History: Other (Stent placement. ) Social history: single. denies: smoking, alcohol abuse, prescription drug abuse Family history: CAD, hypertension Medications and Allergies Allergies Allergy/AdvReac Type Severity Reaction Status Date / Time iodine Allergy Anaphylaxis Verified 03/08/17 02:56 morphine Allergy Anaphylaxis Verified 03/08/17 02:56 Penicillins Allergy Anaphylaxis Verified 03/08/17 02:56 Home Medications Medication Instructions Recorded Confirmed Last Taken Type ALBUTEROL Inhaler [ProAir HFA 2 puff IH QID PRN #1 inhalation 03/30/17 05/12/17 05/12/17 Rx Inhaler] Fluticasone [Flonase] 1 spray NS QDAY #1 bottle 03/30/17 05/12/17 05/12/17 Rx Aspirin EC [Aspirin Enteric Coated 81 mg PO QDAY #30 tablet.dr 04/20/1705/12/17 Rx TAB] Clopidogrel [Plavix] 75 mg PO QDAY #30 tablet 05/11/17 05/12/17 05/12/17 Rx Famotidine [Pepcid] 20 mg PO BID #60 tablet 05/11/17 05/12/17 05/12/17 Rx Lisinopril [Zestril] 10 mg PO DAILY #30 tablet 05/11/17 05/12/17 05/12/17 Rx Active Meds: Active Medications Acetaminophen (Tylenol) 650 mg PO Q4H PRN PRN Reason: Pain MILD(1-3)/Fever >100.5/ESPARZA Last Admin: 05/13/17 12:28 Dose: 650 mg Albuterol (Proventil) 2.5 mg IH Q4HRT PRN PRN Reason: Shortness Of Breath Aspirin (Halfprin Ec) 81 mg PO QDAY [facility] Last Admin: 05/13/17 12:28 Dose: 81 mg Bisacodyl (Dulcolax) 10 mg OR QDAY PRN PRN Reason: Constipation unrelieved by MOM Clopidogrel Bisulfate (Plavix) 75 mg PO QDAY [facility] Last Admin: 05/13/17 12:29 Dose: 75 mg Famotidine (Pepcid) 20 mg PO BID [facility] Last Admin: 05/13/17 12:28 Dose: 20 mg Fluticasone Propionate (Flonase) 50 mcg NS QDAY [facility] Last Admin: 05/13/17 12:29 Dose: 50 mcg Lisinopril (Zestril) 10 mg PO DAILY [facility] Last Admin: 05/13/17 12:30 Dose: 10 mg Magnesium Hydroxide (Milk Of Magnesia) 30 ml PO Q4H PRN PRN Reason: Constipation Ondansetron HCl (Zofran) 4 mg IV Q8H PRN PRN Reason: N/V unrelieved by Reglan Review of Systems All systems: negative (see HPI) Exam - Constitutional Vitals: Temp Pulse Resp BP Pulse Ox 98.0 F 78 16 127/87 99 05/13/17 12:12 05/13/17 08:03 05/13/17 12:12 05/13/17 12:30 05/13/17 08:26 General appearance: Present: no acute distress (.) - EENT Eyes: Present: EOM intact ENT: hearing intact - Respiratory Respiratory effort: normal - Extremities Extremities: abnormal (palpable left common femoral artery pseudoaneurysm; no significant bruising) Peripheral Pulses: within normal limits (palpable pedal pulses bilaterally) - Psychiatric Psychiatric: appropriate mood/affect, cooperative Results - Labs CBC & Chem 7: 05/12/17 10:44 05/12/17 10:44 - Imaging and Cardiology Venous US: image reviewed (arterial ultrasound) Assessment and Plan 57-year-old female status post staged cardiac intervention complicated by a left common femoral artery pseudoaneurysm who is very symptomatic with a pseudoaneurysm measuring approximately 3 cm in diameter. Discussed options with the patient which include close interval follow-up versus endovascular repair versus open repair. Due to patient's present symptoms, she wishes to have a repair performed prior to discharge which is reasonable given her significant discomfort. Nothing by mouth after midnight. I scheduled the patient for balloon assisted endovascular repair with thrombin injection.
[2017-05-14] MEDS ORDERED: NACL 0.9% 500 ML 500 ML ONE (08:18)
[2017-05-14] MEDS ORDERED: HEPARIN 10,000 UNITS/10 ML ONE (08:33)
[2017-05-14] MEDS ORDERED: HEPARIN/NS 5000 UNIT/500ML(CATH LAB) 500 ML IR ONE (08:33)
[2017-05-14] MEDS ORDERED: XYLOCAINE 2% INFILTRATI ONE (08:34)
[2017-05-14] MEDS: VERSED ONE ×2 (08:45→09:25)
[2017-05-14] MEDS: SUBLIMAZE ONE ×2 (08:45→09:25)
[2017-05-14] MEDS ORDERED: NITROGLYCERIN SYRINGE 3 ML ONE (08:48)
[2017-05-14] MEDS ORDERED: CALAN ONE (08:48)
--- NOTE | 2017-05-14 09:39 | Vascular Lab Report ---
LOWER EXTREMITY ARTERIAL DUPLEX: REASON FOR EXAM: Peripheral arterial disease. COMMENTS ON THE LEFT: Triphasic waveforms are seen proximally. A false aneurysm of the common femoral artery noted to measure 2.8 x 1.4 x 2.9 cm.. No focal significant plaque is identified. IMPRESSION: LEFT:Left false aneurysm.
--- NOTE | 2017-05-14 09:40 | Vascular Lab Report ---
LOWER EXTREMITY ARTERIAL DUPLEX: REASON FOR EXAM: False aneurysm. COMMENTS ON THE LEFT: Triphasic waveforms are seen proximally. Triphasic waveforms are seen distally. False aneurysm is noted in the left groin measuring 2.7 x 1.3 x 1.9 cm. No focal significant plaque is identified. Findings are consistent with normal perfusion. Findings are consistent with the ability to heal distal wounds. IMPRESSION: LEFT:False aneurysm in the left groin otherwise essentially normal arterial flow.
--- NOTE | 2017-05-14 09:59 | Operative Report ---
Operative Report Operative Report: EXAM: LEFT LOWER EXTREMITY ANGIOGRAM CLINICAL INDICATION: PATIENT WITH A HISTORY OF A LEFT GROIN PSEUDOANEURYSM AT DATE: 05/14/2017 PROCEDURE: Following an explanation of the risks, benefits and alternatives; written informed consent was obtained. The patient was brought to the angiographic suite and placed in supine position on the examination table. Initial ultrasound evaluation of the wrist demonstrated a patent left radial artery. The left wrist and left groin were prepped and draped in the usual sterile fashion. 1% lidocaine was used for anesthesia. Under ultrasound guidance, a 3-1/2 cm 21-gauge needle was advanced into the left radial artery. A 0.018 guidewire was advanced centrally. The needle was removed and a 5 Croatian low-profile sheath placed over the guidewire. A 5 Croatian vertebral catheter and 0.035 guidewire were then advanced through the sheath and under fluoroscopy advanced into the infrarenal aorta. Angiography was performed for anatomic localization in the left common iliac artery and left external iliac artery. The guidewire and catheter were advanced into the left proximal common femoral artery and multiple obliquities were obtained to identified the origin of the pseudoaneurysm which appears to arise from the distal left common femoral artery just proximal to the bifurcation. The guidewire was advanced across the pseudoaneurysm into the SFA and the vertebral catheter removed. A 7 mm x 40 mm balloon was then advanced over the guidewire under fluoroscopy and positioned across the neck of the pseudoaneurysm. The balloon was insufflated. Ultrasound evaluation of the groin demonstrated persistent flow within the pseudoaneurysm with a 1 cm neck. No additional larger balloons were available at the time of the examination. The balloon and guidewire were therefore removed and hemostasis achieved in the left wrist using manual compression. A sterile dressing was then applied. The patient tolerated the procedure well. There were no immediate post procedure complications. Conscious sedation was performed under the guidance of radiologic nursing. Continuous cardiopulmonary monitoring was utilized. IMPRESSION: 1) Left lower extremity angiogram demonstrating a 1 cm neck extending into a pseudoaneurysm arising from the distal left common femoral artery just proximal to the bifurcation. A 7 mm balloon would not occlude this artery. The patient will need to return after larger size balloons have been acquired.
[2017-05-14] MEDS: LOPRESSOR PO SCH ×2 (11:04→21:03)
[2017-05-14] MEDS: HALFPRIN EC PO SCH (11:05)
[2017-05-14] MEDS: FLONASE NS SCH (11:05)
[2017-05-14] MEDS: ZESTRIL PO SCH (11:05)
[2017-05-14] MEDS: PLAVIX PO SCH (11:06)
[2017-05-14] MEDS: PEPCID PO SCH ×2 (11:06→21:01)
--- NOTE | 2017-05-14 11:37 | Progress Note ---
Assessment and Plan Left groin pseudoaneurysm Coronary artery disease [facility] 05/10/2017 s/p PCI of the circumflex with drug-eluting stent. widely patent right coronary stent Hypertension Hx of COPD Continue medical therapy for coronary artery disease including plavix and aspirin. Subjective Date of service: 05/14/17 Objective Vital Signs Temp Pulse Resp BP BP Pulse Ox 05/14/17 10:49 98.3 F 71 18 105/69 97 05/14/17 10:44 98.3 F 74 18 105/69 97 05/14/17 07:39 98.5 F 76 20 107/72 100 05/13/17 21:43 98.5 F 77 16 104/70 98 05/13/17 15:39 98.5 F 16 117/76 05/13/17 12:30 127/87 05/13/17 12:12 98.0 F 16 127/87 - Physical Examination HEENT: Positive: PERRL, Mucus Membranes Moist Neck: Positive: neck supple, trachea midline Neuro: Positive: Grossly Intact Abdomen: Positive: Soft, Active Bowel Sounds. Negative: Tender, Distended Skin: Positive: Clear Incision: Cardiac Cath Site Musculoskeletal: No Pain, Normal Range of Motion Extremities: Present: normal, Other (right adrian swelling and tenderness). Absent: edema
[2017-05-14] MEDS ORDERED: TYLENOL PO PRN ×2 (15:23→15:42)
[2017-05-14] MEDS: TYLENOL PO PRN (18:00)
--- NOTE | 2017-05-14 18:39 | Progress Note ---
Assessment and Plan Assessment and plan: --Left common femoral pseudoaneurysm: After recent heart catheterization Unable to do vascular procedure, Rescheduled for tomorrow with larger size balloons --Coronary artery disease status post PCI and stenting; continue current cardiac medications, cardiology following --History of COPD; oxygen nebulizers and supportive care --Chronic systolic congestive heart failure; resume patient's home medications --Hypertension moderate control, continue current antihypertensives and PRN medications --History of hypothyroidism; continue Synthroid --DVT prophylaxis; SCDs Plan of care discussed with the patient, Consults and recommendations noted History Interval history: Patient seen and examined medical records reviewed Scheduled for vascular procedure However A 7 mm balloon would not occlude this artery. Vascular recommend to repeat the procedure after larger size balloons have been acquired. Patient feels better no new complaints Hospitalist Physical - Constitutional Vitals: Temp Pulse Resp BP Pulse Ox 99.0 F 82 20 94/72 99 05/14/17 16:48 05/14/17 16:48 05/14/17 16:48 05/14/17 16:48 05/14/17 16:48 General appearance: Present: no acute distress, well-nourished - EENT Eyes: Present: PERRL, EOM intact - Neck Neck: Present: supple, normal ROM - Respiratory Respiratory effort: normal Respiratory: bilateral: diminished, negative: rales, rhonchi, wheezing - Cardiovascular Rhythm: regular Heart Sounds: Present: S1 & S2 - Extremities Extremities: no ischemia, No edema, abnormal (left groin swelling/femoral pseudoaneurysm) - Abdominal General gastrointestinal: soft, non-tender, non-distended, normal bowel sounds - Integumentary Integumentary: Present: clear, warm - Psychiatric Psychiatric: appropriate mood/affect, cooperative - Neurologic Neurologic: CNII-XII intact, moves all extremities Results - Labs CBC & Chem 7: 05/12/17 10:44 05/12/17 10:44 Labs: Laboratory Last Values WBC 11.3 K/mm3 (4.5-11.0) H 05/12/17 10:44 RBC 4.09 M/mm3 (3.65-5.03) 05/12/17 10:44 Hgb 12.0 gm/dl (10.1-14.3) 05/12/17 10:44 Hct 36.7 % (30.3-42.9) 05/12/17 10:44 MCV 90 fl (79-97) 05/12/17 10:44 MCH 29 pg (28-32) 05/12/17 10:44 MCHC 33 % (30-34) 05/12/17 10:44 RDW 14.2 % (13.2-15.2) 05/12/17 10:44 Plt Count 220 K/mm3 (140-440) 05/12/17 10:44 Lymph % (Auto) 21.2 % (13.4-35.0) 05/12/17 10:44 [place] % (Auto) 7.4 % (0.0-7.3) H 05/12/17 10:44 Eos % (Auto) 0.8 % (0.0-4.3) 05/12/17 10:44 Baso % (Auto) 0.5 % (0.0-1.8) 05/12/17 10:44 Lymph # 2.4 K/mm3 (1.2-5.4) 05/12/17 10:44 [place] # 0.8 K/mm3 (0.0-0.8) 05/12/17 10:44 Eos # 0.1 K/mm3 (0.0-0.4) 05/12/17 10:44 Baso # 0.1 K/mm3 (0.0-0.1) 05/12/17 10:44 Seg Neutrophils % 70.1 % (40.0-70.0) H 05/12/17 10:44 Seg Neutrophils # 7.9 K/mm3 (1.8-7.7) H 05/12/17 10:44 PT 12.5 Sec. (12.2-14.9) 05/12/17 10:44 INR 0.89 (0.87-1.13) 05/12/17 10:44 Sodium 141 mmol/L (137-145) 05/12/17 10:44 Potassium 4.5 mmol/L (3.6-5.0) 05/12/17 10:44 Chloride 104.0 mmol/L (98-107) 05/12/17 10:44 Carbon Dioxide 25 mmol/L (22-30) 05/12/17 10:44 Anion Gap 17 mmol/L 05/12/17 10:44 BUN 3 mg/dL (7-17) L 05/12/17 10:44 Creatinine 0.4 mg/dL (0.7-1.2) L 05/12/17 10:44 Estimated GFR > 60 ml/min 05/12/17 10:44 BUN/Creatinine Ratio 8 % 05/12/17 10:44 Glucose 91 mg/dL (65-100) 05/12/17 10:44 Calcium 9.1 mg/dL (8.4-10.2) 05/12/17 10:44 Total Bilirubin 0.20 mg/dL (0.1-1.2) 05/12/17 10:44 AST 15 units/L (5-40) 05/12/17 10:44 ALT 10 units/L (7-56) 05/12/17 10:44 Alkaline Phosphatase 81 units/L (35-129) 05/12/17 10:44 Total Protein 6.4 g/dL (6.3-8.2) 05/12/17 10:44 Albumin 3.7 g/dL (3.9-5) L 05/12/17 10:44 Albumin/Globulin Ratio 1.4 % 05/12/17 10:44
[2017-05-15] MEDS: HALFPRIN EC PO SCH (10:00)
[2017-05-15] MEDS: PEPCID PO SCH ×2 (10:00→21:53)
[2017-05-15] MEDS ORDERED: HEPARIN 10,000 UNITS/10 ML ONE (10:24)
[2017-05-15] MEDS ORDERED: HEPARIN/NS 5000 UNIT/500ML(CATH LAB) 1,000 ML IR ONE (10:24)
[2017-05-15] MEDS ORDERED: CALAN ONE (10:25)
[2017-05-15] MEDS ORDERED: NACL 0.9% 500 ML 500 ML ONE (10:25)
[2017-05-15] MEDS ORDERED: NITROGLYCERIN SYRINGE 3 ML ONE (10:26)
[2017-05-15] MEDS ORDERED: XYLOCAINE 2% INFILTRATI ONE (10:26)
[2017-05-15] MEDS: VERSED ONE ×2 (10:39→11:36)
[2017-05-15] MEDS: SUBLIMAZE ONE ×3 (10:39→11:35)
[2017-05-15] MEDS: THROMBIN (BOVINE) TP SCH ×2 (11:16→11:34)
--- NOTE | 2017-05-15 11:47 | Progress Note ---
Assessment and Plan Left femoral pseudoaneurysm Coronary artery disease [facility] 05/10/2017 s/p PCI of the circumflex with drug-eluting stent. widely patent right coronary stent Hypertension Hx of COPD Continue medical therapy for coronary artery disease including plavix and aspirin. Subjective Date of service: 05/15/17 Interval history: Patient denies chest pain and shortness of breath. Objective Vital Signs Temp Pulse Resp BP Pulse Ox 05/15/17 07:15 98.0 F 73 20 119/73 99 05/14/17 22:10 98.5 F 73 16 107/74 99 05/14/17 16:48 99.0 F 82 20 94/72 99 - Physical Examination General: No Apparent Distress HEENT: Positive: PERRL Neck: Positive: trachea midline Cardiac: Positive: Reg Rate and Rhythm Lungs: Positive: Decreased Breath Sounds Neuro: Positive: Grossly Intact Incision: Cardiac Cath Site Extremities: Absent: edema
[2017-05-15] MEDS ORDERED: TYLENOL PO PRN (12:56)
--- NOTE | 2017-05-15 12:58 | Operative Report ---
Operative Report Operative Report: Procedure: 1. Ultrasound-guided access of the left radial artery 2. Left common femoral arteriography 3. Left profunda femoris arteriography 4. Balloon occlusion of the left common femoral artery 5. Ultrasound-guided thrombin injection of a left common femoral artery pseudoaneurysm Date of Procedure: 05/15/2017 History/Indication: 57-year-old female who developed a left common femoral artery pseudoaneurysm after a prior catheterization procedure Physician: Cristina Duckworth MD Technique/Procedural Details: The patient was placed in the supine position on the procedure table and prepped and draped in the usual sterile fashion. A timeout was performed. Local anesthetic was administered. Under continuous ultrasound guidance, the distal left radial artery was accessed with a 21-gauge needle. This was exchanged over an .018 wire for a 4/5 Faroese glide sheath. A combination of a long 4 Faroese vertebral catheter and benefits and wire was maneuvered into the aorta and then into the left common femoral artery. Arteriography was performed in several projections. The potential wire was removed, and a V18 wire was advanced into the distal superficial femoral artery. A 10 mm x 4 cm balloon on a 135 cm shaft was advanced to the level of the pseudoaneurysm and inflated. Via a Touhy-Fer adapter, placement and occlusion of the common femoral artery was confirmed with contrast injection. 5000 units of thrombin was mixed with 5 mL of saline. After administration of local anesthetic, a 21-gauge needle was advanced under ultrasound guidance into the left common femoral artery pseudoaneurysm. Through this needle, 2 mL of the thrombin mixture was injected. The balloon was deflated, and repeat left common femoral arteriography was performed. The balloon was reinflated, and an additional 0.5 mL of thrombin mixture was injected. The balloon was again deflated, and final arteriography was performed. A pressure dressing was applied to the left groin, and the radial sheath was removed with a dressing was left in place. Discussion: In keeping with previously reported findings, there is contrast extravasation from the proximal left common femoral artery, representing a pseudoaneurysm. Sonographic images prior to thrombin injection demonstrate a large pseudoaneurysm cavity with "to and fro" color imaging. After injection of thrombin, there is no longer flow based on color/Doppler imaging. Final arteriography demonstrates a tiny residual amount of contrast in the pseudoaneurysm neck, but no further visualization otherwise. Specimen: None EBL: <5 cc
[2017-05-15] MEDS: TYLENOL PO PRN (15:23)
--- NOTE | 2017-05-15 16:30 | Vascular Lab Report ---
MISCELLANEOUS VESSEL IDENTIFICATION: COMMENTS ON THE SCAN: The left radial artery was identified and under real-time ultrasound guidance was cannulated. IMPRESSION: Successful ultrasound guided arterial cannulation.
--- NOTE | 2017-05-15 18:26 | Progress Note ---
Assessment and Plan Assessment and plan: --Left common femoral pseudoaneurysm: After recent heart catheterization s/p vascular procedure -balloon occlusion of left common femoral artery -Ultrasound-guided thrombin injection of the left common femoral artery pseudoaneurysm --Coronary artery disease status post PCI and stenting; Stable on medications --History of COPD; oxygen nebulizers and supportive care --Chronic systolic congestive heart failure; continue anti-failure medications --Hypertension moderate control, continue antihypertensives --History of hypothyroidism; continue Synthroid --DVT prophylaxis; SCDs Consults and recommendations noted and appreciated Possible discharge in 1-2 days if stable Plan of care discussed with the patient and case management History Interval history: Patient Seen and examined medical records reviewed Underwent a vascular procedure today No new complaints Hospitalist Physical - Constitutional Vitals: Temp Pulse Resp BP Pulse Ox 98.2 F 73 20 131/74 99 05/15/17 12:57 05/15/17 12:57 05/15/17 12:57 05/15/17 12:57 05/15/17 12:57 General appearance: Present: no acute distress, well-nourished - EENT Eyes: Present: PERRL, EOM intact - Neck Neck: Present: supple, normal ROM - Respiratory Respiratory effort: normal Respiratory: negative: rales, rhonchi, wheezing - Cardiovascular Rhythm: regular Heart Sounds: Present: S1 & S2 - Extremities Extremities: no ischemia, No edema Peripheral Pulses: within normal limits - Abdominal General gastrointestinal: soft, non-tender, non-distended, normal bowel sounds - Integumentary Integumentary: Present: clear, warm - Psychiatric Psychiatric: appropriate mood/affect, cooperative - Neurologic Neurologic: CNII-XII intact, moves all extremities Results - Labs CBC & Chem 7: 05/12/17 10:44 05/12/17 10:44 Labs: Laboratory Last Values WBC 11.3 K/mm3 (4.5-11.0) H 05/12/17 10:44 RBC 4.09 M/mm3 (3.65-5.03) 05/12/17 10:44 Hgb 12.0 gm/dl (10.1-14.3) 05/12/17 10:44 Hct 36.7 % (30.3-42.9) 05/12/17 10:44 MCV 90 fl (79-97) 05/12/17 10:44 MCH 29 pg (28-32) 05/12/17 10:44 MCHC 33 % (30-34) 05/12/17 10:44 RDW 14.2 % (13.2-15.2) 05/12/17 10:44 Plt Count 220 K/mm3 (140-440) 05/12/17 10:44 Lymph % (Auto) 21.2 % (13.4-35.0) 05/12/17 10:44 [place] % (Auto) 7.4 % (0.0-7.3) H 05/12/17 10:44 Eos % (Auto) 0.8 % (0.0-4.3) 05/12/17 10:44 Baso % (Auto) 0.5 % (0.0-1.8) 05/12/17 10:44 Lymph # 2.4 K/mm3 (1.2-5.4) 05/12/17 10:44 [place] # 0.8 K/mm3 (0.0-0.8) 05/12/17 10:44 Eos # 0.1 K/mm3 (0.0-0.4) 05/12/17 10:44 Baso # 0.1 K/mm3 (0.0-0.1) 05/12/17 10:44 Seg Neutrophils % 70.1 % (40.0-70.0) H 05/12/17 10:44 Seg Neutrophils # 7.9 K/mm3 (1.8-7.7) H 05/12/17 10:44 PT 12.5 Sec. (12.2-14.9) 05/12/17 10:44 INR 0.89 (0.87-1.13) 05/12/17 10:44 Sodium 141 mmol/L (137-145) 05/12/17 10:44 Potassium 4.5 mmol/L (3.6-5.0) 05/12/17 10:44 Chloride 104.0 mmol/L (98-107) 05/12/17 10:44 Carbon Dioxide 25 mmol/L (22-30) 05/12/17 10:44 Anion Gap 17 mmol/L 05/12/17 10:44 BUN 3 mg/dL (7-17) L 05/12/17 10:44 Creatinine 0.4 mg/dL (0.7-1.2) L 05/12/17 10:44 Estimated GFR > 60 ml/min 05/12/17 10:44 BUN/Creatinine Ratio 8 % 05/12/17 10:44 Glucose 91 mg/dL (65-100) 05/12/17 10:44 Calcium 9.1 mg/dL (8.4-10.2) 05/12/17 10:44 Total Bilirubin 0.20 mg/dL (0.1-1.2) 05/12/17 10:44 AST 15 units/L (5-40) 05/12/17 10:44 ALT 10 units/L (7-56) 05/12/17 10:44 Alkaline Phosphatase 81 units/L (35-129) 05/12/17 10:44 Total Protein 6.4 g/dL (6.3-8.2) 05/12/17 10:44 Albumin 3.7 g/dL (3.9-5) L 05/12/17 10:44 Albumin/Globulin Ratio 1.4 % 05/12/17 10:44
[2017-05-15] MEDS: LOPRESSOR PO SCH (19:41)
[2017-05-15] MEDS: FLONASE NS SCH (20:07)
[2017-05-15] MEDS: PLAVIX PO SCH ×2 (20:07→21:52)
[2017-05-15] MEDS: ZESTRIL PO SCH (20:08)
[2017-05-15] MEDS: COREG PO SCH (21:55)
[2017-05-16 06:30] LABS: Basophils % (Auto) 0.1 % (0.0-1.8); Hematocrit 32.5 % (30.3-42.9); Hemoglobin 10.7 gm/dl (10.1-14.3); Mean Corpuscular HGB Conc 33 % (30-34); Mean Corpuscular Hemoglobin 29 pg (28-32); Mean Corpuscular Volume 89 fl (79-97); Platelet Count 263 K/mm3 (140-440); Red Blood Count 3.67 M/mm3 (3.65-5.03); Red Cell Distribution Width 13.8 % (13.2-15.2); White Blood Count 11.2 K/mm3 (4.5-11.0)
[2017-05-16] MEDS: TYLENOL PO PRN ×2 (07:47→17:03)
--- NOTE | 2017-05-16 09:50 | Progress Note ---
Assessment and Plan Left femoral pseudoaneurysm Coronary artery disease [facility] 05/10/2017 s/p PCI of the circumflex with drug-eluting stent. widely patent right coronary stent Hypertension Hx of COPD Continue medical therapy for coronary artery disease without interruption of plavix and aspirin. Subjective Date of service: 05/16/17 Interval history: Patient denies chest pain and shortness of breath. Objective Vital Signs Temp Pulse Resp BP Pulse Ox 05/16/17 08:04 98.9 F 68 18 112/78 100 05/16/17 04:43 67 119/68 99 05/15/17 20:32 98.4 F 70 18 111/63 99 05/15/17 16:29 98.8 F 76 20 104/62 97 05/15/17 12:57 98.2 F 73 20 131/74 99 - Physical Examination General: No Apparent Distress HEENT: Positive: PERRL Neck: Positive: trachea midline Cardiac: Positive: Reg Rate and Rhythm Lungs: Positive: Decreased Breath Sounds Neuro: Positive: Grossly Intact Extremities: Absent: edema - Labs and Meds CBC 05/16/17 Range/Units 06:00 WBC 11.2 H (4.5-11.0) K/mm3 RBC 3.67 (3.65-5.03) M/mm3 Hgb 10.7 (10.1-14.3) gm/dl Hct 32.5 (30.3-42.9) % Plt Count 263 (140-440) K/mm3 Lymph # 3.1 (1.2-5.4) K/mm3 [place] # 0.8 (0.0-0.8) K/mm3 Eos # 0.0 (0.0-0.4) K/mm3 Baso # 0.0 (0.0-0.1) K/mm3
[2017-05-16] MEDS: HALFPRIN EC PO SCH (11:04)
[2017-05-16] MEDS: PLAVIX PO SCH (11:05)
[2017-05-16] MEDS: PEPCID PO SCH ×2 (12:10→22:08)
[2017-05-16] MEDS: COREG PO SCH ×2 (12:19→22:07)
[2017-05-16] MEDS: ZESTRIL PO SCH (12:24)
[2017-05-16] MEDS: FLONASE NS SCH (14:06)
--- NOTE | 2017-05-16 18:22 | Progress Note ---
Subjective Date of service: 05/16/17 Interval history: No acute events today. c/o left groin tenderness, but states pain has significantly improved since yesterday. Objective - Constitutional Vitals: Vital Signs - 12hr 05/16/17 05/16/17 05/16/17 08:04 12:03 12:19 Temperature 98.9 F 98.9 F Pulse Rate 68 73 Respiratory 18 20 Rate Blood Pressure 112/78 135/84 126/62 O2 Sat by Pulse 100 100 Oximetry 05/16/17 05/16/17 12:24 16:25 Temperature 98.4 F Pulse Rate 71 Respiratory 20 Rate Blood Pressure 126/62 117/76 O2 Sat by Pulse 98 Oximetry General appearance: Present: no acute distress - EENT Eyes: PERRL, EOM intact ENT: hearing intact, clear oral mucosa - Neck Neck: supple, normal ROM - Respiratory Respiratory effort: normal Extremities: pulses intact, pulses symmetrical Extremity abnormal: other (TTP at site of lt groin hematoma. Palp LT Fem/PT/ DP. Lt rad pulse palpable) - Labs CBC & Chem 7: 05/16/17 06:00 05/12/17 10:44 Labs: Abnormal lab results 05/16/17 Range/Units 06:00 WBC 11.2 H (4.5-11.0) K/mm3
--- NOTE | 2017-05-16 19:22 | Progress Note ---
Assessment and Plan Assessment and plan: 57-year-old female patient admitted with left common femoral pseudoaneurysm after heart catheterization, Status post vascular procedure, balloon occlusion, and thrombin injection into the pseudoaneurysm, vascular following --Left common femoral pseudoaneurysm: After recent heart catheterization s/p vascular procedure , balloon occlusion and Ultrasound-guided thrombin injection of the left common femoral artery pseudoaneurysm follow-up ultrasound tomorrow --Coronary artery disease status post PCI and stenting; Stable on medications --History of COPD; oxygen nebulizers and supportive care --Chronic systolic congestive heart failure; continue anti-failure medications --Hypertension moderate control, continue antihypertensives --History of hypothyroidism; continue Synthroid --DVT prophylaxis; SCDs Plan of care discussed with the patient , her nurse and case management Disposition ; possible discharge tomorrow after follow-up ultrasound , if stable History Interval history: Patient seen and examined medical records reviewed Feels slightly better no new complaints Left groin pain significantly improved Hospitalist Physical - Constitutional Vitals: Temp Pulse Resp BP Pulse Ox 98.4 F 71 20 117/76 98 05/16/17 16:25 05/16/17 16:25 05/16/17 16:25 05/16/17 16:25 05/16/17 16:25 General appearance: Present: no acute distress, well-nourished - EENT Eyes: Present: PERRL, EOM intact - Neck Neck: Present: supple, normal ROM - Respiratory Respiratory effort: normal Respiratory: bilateral: diminished, negative: rales, rhonchi, wheezing - Cardiovascular Rhythm: regular Heart Sounds: Present: S1 & S2 - Extremities Extremities: no ischemia, No edema - Abdominal General gastrointestinal: soft, non-tender, non-distended, normal bowel sounds - Integumentary Integumentary: Present: clear, warm - Psychiatric Psychiatric: appropriate mood/affect, cooperative - Neurologic Neurologic: CNII-XII intact, moves all extremities Results - Labs CBC & Chem 7: 05/16/17 06:00 05/12/17 10:44 Labs: Laboratory Last Values WBC 11.2 K/mm3 (4.5-11.0) H 05/16/17 06:00 RBC 3.67 M/mm3 (3.65-5.03) 05/16/17 06:00 Hgb 10.7 gm/dl (10.1-14.3) 05/16/17 06:00 Hct 32.5 % (30.3-42.9) 05/16/17 06:00 MCV 89 fl (79-97) 05/16/17 06:00 MCH 29 pg (28-32) 05/16/17 06:00 MCHC 33 % (30-34) 05/16/17 06:00 RDW 13.8 % (13.2-15.2) 05/16/17 06:00 Plt Count 263 K/mm3 (140-440) 05/16/17 06:00 Lymph % (Auto) 27.4 % (13.4-35.0) 05/16/17 06:00 [place] % (Auto) 7.1 % (0.0-7.3) 05/16/17 06:00 Eos % (Auto) 0.0 % (0.0-4.3) 05/16/17 06:00 Baso % (Auto) 0.1 % (0.0-1.8) 05/16/17 06:00 Lymph # 3.1 K/mm3 (1.2-5.4) 05/16/17 06:00 [place] # 0.8 K/mm3 (0.0-0.8) 05/16/17 06:00 Eos # 0.0 K/mm3 (0.0-0.4) 05/16/17 06:00 Baso # 0.0 K/mm3 (0.0-0.1) 05/16/17 06:00 Seg Neutrophils % 65.4 % (40.0-70.0) 05/16/17 06:00 Seg Neutrophils # 7.3 K/mm3 (1.8-7.7) 05/16/17 06:00 PT 12.5 Sec. (12.2-14.9) 05/12/17 10:44 INR 0.89 (0.87-1.13) 05/12/17 10:44 Sodium 141 mmol/L (137-145) 05/12/17 10:44 Potassium 4.5 mmol/L (3.6-5.0) 05/12/17 10:44 Chloride 104.0 mmol/L (98-107) 05/12/17 10:44 Carbon Dioxide 25 mmol/L (22-30) 05/12/17 10:44 Anion Gap 17 mmol/L 05/12/17 10:44 BUN 3 mg/dL (7-17) L 05/12/17 10:44 Creatinine 0.4 mg/dL (0.7-1.2) L 05/12/17 10:44 Estimated GFR > 60 ml/min 05/12/17 10:44 BUN/Creatinine Ratio 8 % 05/12/17 10:44 Glucose 91 mg/dL (65-100) 05/12/17 10:44 Calcium 9.1 mg/dL (8.4-10.2) 05/12/17 10:44 Total Bilirubin 0.20 mg/dL (0.1-1.2) 05/12/17 10:44 AST 15 units/L (5-40) 05/12/17 10:44 ALT 10 units/L (7-56) 05/12/17 10:44 Alkaline Phosphatase 81 units/L (35-129) 05/12/17 10:44 Total Protein 6.4 g/dL (6.3-8.2) 05/12/17 10:44 Albumin 3.7 g/dL (3.9-5) L 05/12/17 10:44 Albumin/Globulin Ratio 1.4 % 05/12/17 10:44
[2017-05-17] MEDS: PLAVIX PO SCH (09:39)
[2017-05-17] MEDS: PEPCID PO SCH (09:39)
[2017-05-17] MEDS: FLONASE NS SCH (09:39)
[2017-05-17] MEDS: HALFPRIN EC PO SCH (09:39)
[2017-05-17] MEDS: COREG PO SCH (09:39)
[2017-05-17] MEDS: ZESTRIL PO SCH (09:40)
--- NOTE | 2017-05-17 10:21 | Event Note ---
Date: 05/17/17 Pt awake and alert. She c/o continued L groin (slightly improved). Await duplex, if negative then okay to d/c home. Pt to f/u in our office in 1-2 weeks. Discussed with pt , the pain should improve over the next few weeks as the pseudo-aneurysm resolves. Addendum: Duplex showed psuedo-aneurysm is thrombosed. Okay to d/c from vascular surgery stand point, pt to f/u in our office as an outpt.
--- NOTE | 2017-05-17 10:41 | Event Note ---
Date: 05/17/17 Reviewed duplex - there is no flow in the pseudoaneurysm sac. The patient is ok for discharge from a vascular perspective. She can follow up with me in clinic within 1-2 weeks.
[2017-05-17] MEDS: TYLENOL PO PRN (11:25)
[2017-05-17 12:16] VITALS: BP 125/81
--- NOTE | 2017-05-17 14:37 | Discharge Summary ---
Providers - Providers Date of Admission: 05/12/17 14:44 Date of discharge: 05/17/17 Attending physician: ROBERTO MATUTE 05/12/17 14:30 Consult to Physician [CONS] Urgent Consulting Provider: RASHAWN BRANHAM Reason For Exam: pseudoaneurysm Notified:: yes Primary care physician: FACILITY OPERATIONS MANAGER Hospitalization Condition: Good Hospital course: Discharge diagnosis: 57-year-old female patient admitted with left common femoral pseudoaneurysm after heart catheterization, Status post vascular procedure, balloon occlusion, and thrombin injection into the pseudoaneurysm, vascular following --Left common femoral pseudoaneurysm: After recent heart catheterization s/p vascular procedure , balloon occlusion and Ultrasound-guided thrombin injection of the left common femoral artery pseudoaneurysm follow-up ultrasound tomorrow --Coronary artery disease status post PCI and stenting; Stable on medications --History of COPD; oxygen nebulizers and supportive care --Chronic systolic congestive heart failure; continue anti-failure medications --Hypertension moderate control, continue antihypertensives --History of hypothyroidism; continue Synthroid Disposition: - TO HOME OR SELFCARE Time spent for discharge: 32 minutes Core Measure Documentation - Palliative Care Palliative Care/ Comfort Measures: Not Applicable - Core Measures Any of the following diagnoses?: none Exam - Physical Exam Narrative exam: General appearance: Present: no acute distress, well-nourished - EENT Eyes: Present: PERRL, EOM intact - Neck Neck: Present: supple, normal ROM - Respiratory Respiratory effort: normal Respiratory: bilateral: diminished, negative: rales, rhonchi, wheezing - Cardiovascular Rhythm: regular Heart Sounds: Present: S1 & S2 - Extremities Extremities: no ischemia, No edema - Abdominal General gastrointestinal: soft, non-tender, non-distended, normal bowel sounds - Integumentary Integumentary: Present: clear, warm - Psychiatric Psychiatric: appropriate mood/affect, cooperative - Neurologic Neurologic: CNII-XII intact, moves all extremities - Constitutional Vitals: Temp Pulse Resp BP Pulse Ox 97.8 F 72 18 125/81 100 05/17/17 12:02 05/17/17 09:40 05/17/17 12:02 05/17/17 12:02 05/17/17 07:49 Plan Activity: advance as tolerated Weight Bearing Status: Weight Bear as Tolerated Diet: low fat, low salt Additional Instructions: f/u with Dr. Duckworth in one to two weeks Follow up with: PRIMARY CARE, [Primary Care Provider] - 3-5 Days Prescriptions: Carvedilol [Coreg] 3.125 mg PO BID #30 tablet Lisinopril [Zestril TAB] 2.5 mg PO QDAY #30 tablet predniSONE [Deltasone] 20 mg PO DAILY PRN #10 tablet PRN Reason: Allergy Symptoms
== END 2017-05-17 16:31 | disposition home health service (06) | DRG 253 ==
LOC: ED 08:35 → 3A 14:44
PROVIDERS: ADMIT Internal Medicine; ATTEND Internal Medicine
PROC: B41G1ZZ Fluoroscopy of Left Lower Extremity Arteries using Low Osmolar Contrast (ICD-10-PCS; 2017-05-14)
PROC: 04JY3ZZ Inspection of Lower Artery, Percutaneous Approach (ICD-10-PCS; 2017-05-14)
PROC: 04LL3DZ Occlusion of Left Femoral Artery with Intraluminal Device, Percutaneous Approach (ICD-10-PCS; principal; 2017-05-15)
PROC: B41G1ZZ Fluoroscopy of Left Lower Extremity Arteries using Low Osmolar Contrast (ICD-10-PCS; 2017-05-15)
DX: I97.89 Other postprocedural complications and disorders of the circulatory system, not elsewhere classified (principal); I50.22 Chronic systolic (congestive) heart failure; I72.4 Aneurysm of artery of lower extremity; I25.10 Atherosclerotic heart disease of native coronary artery without angina pectoris; J44.9 Chronic obstructive pulmonary disease, unspecified; I11.0 Hypertensive heart disease with heart failure; E03.9 Hypothyroidism, unspecified; M13.0 Polyarthritis, unspecified; Y84.0 Cardiac catheterization as the cause of abnormal reaction of the patient, or of later complication, without mention of misadventure at the time of the procedure; E05.90 Thyrotoxicosis, unspecified without thyrotoxic crisis or storm; Z82.49 Family history of ischemic heart disease and other diseases of the circulatory system; Z88.5 Allergy status to narcotic agent; Z88.0 Allergy status to penicillin; Z91.041 Radiographic dye allergy status; Z79.82 Long term (current) use of aspirin; Z95.5 Presence of coronary angioplasty implant and graft; Y92.89 Other specified places as the place of occurrence of the external cause
CPT/HCPCS: 36002; 36247; 36415; 37224; 75710; 76937; 80053; 85025; 85610; 93005; 93010; A9270-GY; C1725; C1769; C1894; J1644; J2250; J2930; J3010; J7040; Q9967

== ENCOUNTER 2017-06-28 10:13 | Emergency (ER) | payer MEDICARE ==
--- NOTE | 2017-06-28 16:20 | Emergency Department Report ---
ED Recheck HPI - General Chief Complaint: Medical Clearance Stated Complaint: MED REFILLS Time Seen by Provider: 06/28/17 15:59 Source: patient Mode of arrival: Ambulatory Limitations: No Limitations - History of Present Illness Initial Comments: This is a 57 y.o. female presents for medication refills. She took the last dose of plavix, lisinopril, periactin, and prednisone today. Her next appointment with PCP is 08/23/2017. She is requesting enough medication to tie over to scheduled appointment. Denies complications from current regimen. MD Complaint: medication refill request -: days(s) (1) Returns Today for: request for prescription (refills for plavix, lisinopril, periactin, and prednisone) Symptoms Since Prior Visit: no new symptoms Context: ran out of medication Associated Symptoms: none - Related Data Previous Rx's Medication Instructions Recorded Last Taken Type ALBUTEROL Inhaler [ProAir HFA 2 puff IH QID PRN #1 inhalation 03/30/17 05/12/17 Rx Inhaler] Fluticasone [Flonase] 1 spray NS QDAY #1 bottle 03/30/17 05/12/17 Rx Aspirin EC [Aspirin Enteric Coated 81 mg PO QDAY #30 tablet.dr 04/20/17 Rx TAB] Famotidine [Pepcid] 20 mg PO BID #60 tablet 05/11/17 05/12/17 Rx ALBUTEROL NEB's [Proventil 0.083% 2.5 mg IH Q4HRT PRN nebu 05/17/17 Unknown Rx NEBS] Carvedilol [Coreg] 3.125 mg PO BID #30 tablet 05/17/17 Unknown Rx Clopidogrel Bisulfate [Plavix] 75 mg PO DAILY 30 Days #30 tablet 06/28/17 Unknown Rx Cyproheptadine [Periactin] 4 mg PO DAILY 30 Days #30 tablet 06/28/17 Unknown Rx Lisinopril [Zestril] 10 mg PO DAILY 30 Days #30 tablet 06/28/17 Unknown Rx predniSONE [Deltasone] 20 mg PO DAILY PRN #10 tablet 06/28/17 Unknown Rx Allergies Allergy/AdvReac Type Severity Reaction Status Date / Time iodine Allergy Anaphylaxis Verified 03/08/17 02:56 morphine Allergy Anaphylaxis Verified 03/08/17 02:56 Penicillins Allergy Anaphylaxis Verified 03/08/17 02:56 atorvastatin [From Lipitor] AdvReac Unknown Verified 05/14/17 21:40 metoprolol [From Lopressor] AdvReac Unknown Verified 05/14/17 21:41 ED Review of Systems ROS: Stated complaint: MED REFILLS Other details as noted in HPI ED Past Medical Hx - Past Medical History Previous Medical History?: Yes Hx Hypertension: Yes Hx Congestive Heart Failure: Yes Hx Diabetes: No Hx Asthma: Yes Hx COPD: Yes Hx HIV: No Additional medical history: hyperthyroidism; cardiac stents x2, 2006. Cardiac catheterization in April 2017 with stent placement and treatment of stent restenosis - Surgical History Past Surgical History?: Yes Hx Coronary Stent: Yes Additional Surgical History: ectopic - Social History Smoking Status: Current Some Day Smoker Substance Use Type: Alcohol, Prescribed - Medications Home Medications: Home Medications Medication Instructions Recorded Confirmed Last Taken Type ALBUTEROL Inhaler [ProAir HFA 2 puff IH QID PRN #1 inhalation 03/30/17 05/12/17 05/12/17 Rx Inhaler] Fluticasone [Flonase] 1 spray NS QDAY #1 bottle 03/30/17 05/12/17 05/12/17 Rx Aspirin EC [Aspirin Enteric Coated 81 mg PO QDAY #30 tablet. 04/20/1706/28/17 Rx TAB] Famotidine [Pepcid] 20 mg PO BID #60 tablet 05/11/17 05/12/17 05/12/17 Rx ALBUTEROL NEB's [Proventil 0.083% 2.5 mg IH Q4HRT PRN nebu 05/17/17 Unknown Rx NEBS] Carvedilol [Coreg] 3.125 mg PO BID #30 tablet 05/17/17 Unknown Rx Clopidogrel Bisulfate [Plavix] 75 mg PO DAILY 30 Days #30 tablet 06/28/17 Unknown Rx Cyproheptadine [Periactin] 4 mg PO DAILY 30 Days #30 tablet 06/28/17 Unknown Rx Lisinopril [Zestril] 10 mg PO DAILY 30 Days #30 tablet 06/28/17 Unknown Rx predniSONE [Deltasone] 20 mg PO DAILY PRN #10 tablet 06/28/17 Unknown Rx ED Physical Exam - General Limitations: No Limitations General appearance: alert, in no apparent distress - Respiratory Respiratory exam: Present: normal lung sounds bilaterally. Absent: respiratory distress - Cardiovascular Cardiovascular Exam: Present: regular rate, normal rhythm. Absent: systolic murmur, diastolic murmur, rubs, gallop - GI/Abdominal GI/Abdominal exam: Present: soft, normal bowel sounds - Neurological Exam Neurological exam: Present: alert, oriented X3 ED Course Vital Signs 06/28/17 10:56 Temperature 98.4 F Pulse Rate 85 Respiratory 20 Rate Blood Pressure 138/90 O2 Sat by Pulse 99 Oximetry Critical care attestation.: If time is entered above; I have spent that time in minutes in the direct care of this critically ill patient, excluding procedure time. ED Disposition Clinical Impression: Encounter for medication refill, Stented coronary artery, Unstable angina pectoris Hypertension Qualifiers: Hypertension type: essential hypertension Qualified Code(s): I10 - Essential ( primary) hypertension Disposition: TO HOME OR SELFCARE Is pt being admited?: No Does the pt Need Aspirin: No Condition: Stable Instructions: Hypertension (ED), Angina (ED) Additional Instructions: Follow up with primary care provider on August 23, 2016. Prescriptions: Clopidogrel Bisulfate [Plavix] 75 mg PO DAILY 30 Days #30 tablet Cyproheptadine [Periactin] 4 mg PO DAILY 30 Days #30 tablet Lisinopril [Zestril] 10 mg PO DAILY 30 Days #30 tablet predniSONE [Deltasone] 20 mg PO DAILY PRN #10 tablet PRN Reason: Allergy Symptoms Referrals: GABY CORONADO [Other] - 3-5 Days Time of Disposition: 16:28 Print Language: FAROESE
[2017-06-28 17:03] VITALS: BP 129/90
== END 2017-06-28 17:03 | disposition home or self-care (01) ==
LOC: ED 10:13
DX: Z76.0 Encounter for issue of repeat prescription (principal); I10 Essential (primary) hypertension; I20.8 Other forms of angina pectoris; Z79.82 Long term (current) use of aspirin; I50.9 Heart failure, unspecified; J45.909 Unspecified asthma, uncomplicated; F17.200 Nicotine dependence, unspecified, uncomplicated; Z88.0 Allergy status to penicillin; Z88.8 Allergy status to other drugs, medicaments and biological substances; Z88.5 Allergy status to narcotic agent
CPT/HCPCS: 99282